=== PATIENT | female | born 1965 | race Caucasian/White ===

== ENCOUNTER 2020-03-06 08:38 | Outpatient (REF) | payer MEDICAID, SELFPAY | END 2020-03-06 08:39 | disposition home or self-care (01) | LOC: HO.LAB 08:38 | PROVIDERS: Visit Provider Internal Medicine | DX: Z20.828 Contact with and (suspected) exposure to other viral communicable diseases (principal) | CPT/HCPCS: C9803; U0003 ==

== ENCOUNTER 2020-08-09 13:42 | Outpatient (REF) | payer MEDICAID, SELFPAY ==
[2020-08-09 15:09] LABS: MANUAL DIFF FLAG NO
[2020-08-09 15:20] LABS: Basophils Percent Auto 0.7 % (0-2); Eosinophils Absolute Auto 0.1 X10*3/uL (0.0-0.4); Eosinophils Percent Auto 1.3 % (0-4); Hematocrit 36.9 % (37-47); Hemoglobin 12.1 g/dl (12.0-16.0); Imm Gran Abs Auto 0.01 X10*3/uL (0.00-0.03); Imm Gran Pct Auto 0.2 % (0.0-0.4); Lymphocytes Absolute Auto 2.1 X10*3/uL (1.2-4.9); Lymphocytes Percent Auto 33.7 % (20-40); Mean Corpuscular HGB Conc 32.8 g/dl (31.0-35.0); Mean Corpuscular Hemoglobin 30.1 pg (27.0-33.0); Mean Corpuscular Volume 91.8 fL (80-98); Mean Platelet Volume 12.3 fL (9.4-12.3); Monocytes Absolute Auto 0.5 X10*3/uL (0.1-1.2); Monocytes Percent Auto 8.6 % (2-11); Neutrophils Absolute Auto 3.4 X10*3/uL (2.0-8.3); Neutrophils Percent Auto 55.5 % (45-73); Platelet Count 219 X10*3/uL (160-400); Red Blood Count 4.02 X10*6/uL (4.20-5.50); Red Cell Distribution Width 12.7 % (11.0-16.0); White Blood Count 6.2 X10*3/uL (4.8-10.8)
[2020-08-09 15:42] LABS: Alanine Aminotransferase 29 U/L (0-31); Albumin Level 3.9 g/dL (3.5-5.0); Alkaline Phosphatase 63 U/L (39-117); Aspartate Amino Transferase 18 U/L (5-31); Bilirubin Total 0.3 mg/dL (0.0-1.0); Blood Urea Nitrogen 14 mg/dL (9-16); Estimated Glomerular Filt Rate > 60; Glucose Random 98 mg/dL (60-115); Total Protein 7.1 g/dL (6.5-8.0)
[2020-08-09 15:54] LABS: Anion Gap 10 (12-20); Carbon Dioxide 27 mmol/L (22-29); Chloride 109 mmol/L (96-108); Potassium 3.9 mmol/L (3.3-5.1); Sodium 142 mmol/L (135-145)
[2020-08-09 16:32] LABS: Erythrocyte Sedimentation Rate 18 MM/HR (0-20)
== END 2020-08-09 13:43 | disposition home or self-care (01) ==
LOC: HO.MANLDS 13:42
PROVIDERS: PCP Internal Medicine; Visit Provider Internal Medicine
DX: R55 Syncope and collapse (principal)
CPT/HCPCS: 36415; 80053; 85025; 85652

== ENCOUNTER 2020-09-16 17:38 | Outpatient (REF) | payer MEDICAID, SELFPAY ==
--- NOTE | ~2020-09-16 | XR_ITS ---
EXAMINATION: BILATERAL SHOULDER. CLINICAL INFORMATION: Pain. COMPARISON: None TECHNIQUE: 4 views each shoulder. FINDINGS: Left shoulder: There is a normal glenohumeral alignment. The AC joint is normal. There is no visible fracture, dislocation or bony erosive changes. The soft tissues are normal. Right shoulder: There is normal glenohumeral and AC joint alignment. No acute fracture, dislocation or subluxation seen. No bony erosive changes. No loose bodies or calcifications seen. XR/XR shoulder RT min 2V IMPRESSION: Unremarkable bilateral shoulder exam.
--- NOTE | ~2020-09-16 | XR_ITS ---
EXAMINATION: BILATERAL SHOULDER. CLINICAL INFORMATION: Pain. COMPARISON: None TECHNIQUE: 4 views each shoulder. FINDINGS: Left shoulder: There is a normal glenohumeral alignment. The AC joint is normal. There is no visible fracture, dislocation or bony erosive changes. The soft tissues are normal. Right shoulder: There is normal glenohumeral and AC joint alignment. No acute fracture, dislocation or subluxation seen. No bony erosive changes. No loose bodies or calcifications seen. XR/XR shoulder LT min 2V IMPRESSION: Unremarkable bilateral shoulder exam.
== END 2020-09-16 17:39 | disposition home or self-care (01) ==
LOC: HO.XRAY 17:38
PROVIDERS: PCP Internal Medicine; Visit Provider Internal Medicine
DX: M25.512 Pain in left shoulder (principal); M25.511 Pain in right shoulder
CPT/HCPCS: 73030

== ENCOUNTER 2020-09-27 10:24 | Outpatient (REF) | payer MEDICAID, SELFPAY ==
--- NOTE | ~2020-09-27 | MM_ITS ---
EXAMINATION: MM SCREENING DIGITAL BREAST TOMOSYNTHESIS, BILATERAL CLINICAL INFORMATION: Screening. Asymptomatic. The lifetime risk of breast cancer based on the Tyrer-Cuzick Model is 10%. COMPARISON: Mammography: 07/19/2019 and prior studies dating back to 08/13/2009 TECHNIQUE: Digital breast tomosynthesis is performed in both the craniocaudal and mediolateral oblique views along with computer-aided detection (CAD). Synthesized 2D images are generated from the tomosynthesis. FINDINGS: The breasts are heterogeneously dense, which may obscure small masses (ACR BI-RADS breast composition Category c). Breast tissue composition borders on average fibroglandular. The right breast parenchymal pattern is similar to prior studies. There is no interval mass or architectural abnormality. Low right axillary tail node is stable. Neither breast shows abnormal calcifications. The axilla and skin contours are unremarkable. Left MLO view has asymmetric density central upper aspect likely summation artifact. Parenchymal pattern is similar to multiple prior exams on CC view. Patient will be recalled for additional views to further characterize. MM/MM tomosynthesis screening BI IMPRESSION: 1. Left: Asymmetric density central upper breast, suspect summation artifact. 2. Right: No mammographic evidence of malignancy. ASSESSMENT: BI-RADS 0: Incomplete - Need Additional Imaging Evaluation RECOMMENDATION: 1. Additional views of the left breast (3D spot MLO, 3D ML). 2. Targeted ultrasound if warranted after review of the additional views. 3. Radiology department staff will contact the patient for additional imaging. This patient's information was entered into a reminder system with a target due date for their next mammogram.
== END 2020-09-27 10:25 | disposition home or self-care (01) ==
LOC: HO.MAMMO 10:24
PROVIDERS: Visit Provider Internal Medicine
DX: Z12.31 Encounter for screening mammogram for malignant neoplasm of breast (principal)
CPT/HCPCS: 77063; 77067

== ENCOUNTER 2020-09-27 11:01 | Outpatient (REF) | payer MEDICAID, SELFPAY ==
--- NOTE | ~2020-09-27 | CT_ITS ---
EXAMINATION: CT HEAD WITHOUT CONTRAST CLINICAL INFORMATION: Syncope and collapse COMPARISON: None TECHNIQUE: Contiguous axial imaging was performed from the skull base to vertex without intravenous administration of contrast. This CT examination was performed using dose optimization techniques as appropriate, variously including the following: *Automated exposure control *Adjustment of mA and/or kV according to patient size (this includes techniques or standardized protocols for targeted exams where dose is matched to indication/reason for exam; i.e. extremities or head) *Use of iterative reconstruction technique DLP: 690 mGy-cm FINDINGS: There is no evidence of acute intracranial hemorrhage or territorial infarction. No abnormal mass effect or midline shift is seen. Ventura to white matter differentiation is well preserved. No extra-axial fluid collections are identified. The ventricles are normal in size. There is no abnormal attenuation within the brain parenchyma. The osseous structures and soft tissues are normal. The mastoid air cells and visualized portions of the paranasal sinuses are well aerated. CT/CT head/brain wo con IMPRESSION: Unremarkable exam.
== END 2020-09-27 11:02 | disposition home or self-care (01) ==
LOC: HO.CT 11:01
PROVIDERS: Visit Provider Internal Medicine
DX: R55 Syncope and collapse (principal)
CPT/HCPCS: 70450

== ENCOUNTER 2020-10-09 10:49 | Outpatient (REF) | payer MEDICAID, SELFPAY ==
--- NOTE | ~2020-10-09 | MM_ITS ---
EXAMINATION: MM DIAGNOSTIC DIGITAL BREAST TOMOSYNTHESIS, LEFT CLINICAL INFORMATION: Recall from screening for asymmetric density central upper breast on MLO view, likely summation artifact. TC Score 10%. Family history breast cancer, mother. COMPARISON: Mammography: 09/27/2020, 07/19/2019, 05/13/2018 TECHNIQUE: Digital breast tomosynthesis is performed. 2D images are generated from the tomosynthesis. The following views are obtained: 3-D spot MLO, 3-D ML FINDINGS: The breasts are heterogeneously dense, which may obscure small masses (ACR BI-RADS breast composition Category c). The additional views show no persistent asymmetric density. There is no underlying mass or architectural abnormality. Results are discussed with the patient at time of visit. MM/MM tomosynthesis added views L IMPRESSION: Additional views show no persistent asymmetric density. No significant changes. ASSESSMENT: BI-RADS 1: Negative RECOMMENDATION: Routine annual mammography screening. This patient's information was entered into a reminder system with a target due date for their next mammogram.
== END 2020-10-09 10:50 | disposition home or self-care (01) ==
LOC: HO.MAMMO 10:49
PROVIDERS: Visit Provider Internal Medicine
DX: R92.2 Inconclusive mammogram (principal)
CPT/HCPCS: 77061; 77065

== ENCOUNTER → 2020-10-29 09:30 | Outpatient (REF) | payer MEDICAID, SELFPAY ==
--- NOTE | 2020-10-29 09:30 | CA_ITS ---
Transthoracic Echocardiogram Patient (Last, First, Middle): Aruna Red E Gender: Female Date of : 1965 Age: 55 Procedure Date: 10/29/2020 Procedure Type: Transthoracic Echocardiogram Location: OP Height: 149.86 cm Weight: 61.24 kg BSA: 1.56 m2 Heart Rate: bpm BP: 124 / 75 mmHg Clinical Account Liaison: NATALEE/CHAZ Referring MD: Aiden Quezada MD Scan Coordinator: Magdiel Villar MD Symptoms: SYNCOPE COLLAPSE R55 Study Quality: Fair ECG Rhythm: Sinus Conclusions: - Normal study Findings Left Ventricle Normal left ventricular size, thickness, and systolic function. The visually estimated ejection fraction is between 60-65%. Diastolic function is normal for age. Right Ventricle Normal right ventricular cavity size and systolic function. Atria Both atria are normal in size. There is no evidence of interatrial shunt. Aortic Valve Normal aortic valve structure and function. There is no aortic valve stenosis. There is no aortic valve regurgitation. Mitral Valve Normal mitral valve structure and function. There is trace mitral valve regurgitation. There is no mitral valve stenosis. Pulmonic Valve The pulmonic valve is likely normal. There is trace pulmonic valve regurgitation. Tricuspid Valve Normal tricuspid valve structure. There is trace tricuspid valve regurgitation. The right ventricular systolic pressure is normal. The right ventricular systolic pressure is 16 mmHg. Normal right atrial pressure. There is no evidence of pulmonary hypertension. Great Vessels All visible segments of the aorta are normal in size. The pulmonary artery was not well visualized. Venous The inferior vena cava is normal in size and collapses greater than 50% with inspiration. Pericardium/Pleural There is no evidence of pericardial effusion. Prior Study Comparison No prior study available for comparison. Measurements M-Mode Liner Measurements Normals - Women/Men AOV Cusps: 1.30 1.5-2.6 cm/m2 2D Linear Measurements IVSd: 0.50 0.6-0.9/0.6-1.0 cm LVIDd: 4.76 3.9-5.3/4.2-5.9 cm LVIDd Index: 3.05 2.4-3.2/2.2-3.1 cm/m2 LVIDs: 3.11 2.0-3.6 cm LVPWd: 0.52 0.7-1.1 cm Ao Root: 2.40 2.1-3.5 cm LA Diam: 2.70 2.7-3.8/3.0-4.0 cm LAIDs Index: 1.73 1.5-2.3 cm/m2 LV Mass: 88.45 67-162/88-224 g LV Mass Index: 56.70 43-95/49-115 g/m2 LVOT Diam: 1.80 3.0+(-)1.3 cm 2D Systolic Function EF 4C: 69.00 >55% EF 2C: 62.20 >55% EF BiP: 64.80 >55% Mitral Valve MV Pk E: 0.86 MV PK A: 0.81 MV Decel Time: 167.00 E/A: 1.10 E'Lateral: 11.00 E'Medial: 11.10 E/E' Med: 7.80 E/E' Lat: 7.80 PHT: 49.00 MVA PHT: 4.49 Decel Tyler: 5.18 Aortic Valve AoV Pk Oliver: 1.23 AoV Mn Oliver: 0.90 AoV VTI: 0.31 AoV Pk Grad: 6.00 Aov Mn Grad: 4.00 FALLON Cont.VTI: 1.55 LVOT LVOT Pk Oliver: 0.91 LVOT Mn Oliver: 0.60 LVOT VTI: 0.19 LVOT Pk Grad: 3.00 LVOT Mn Grad: 2.00 LVOT Diam: 1.80 LVOT Area: 2.54 Diastolic Function MV Pk E: 0.86 MV Pk A: 0.81 E/A: 1.10 E'Medial: 11.10 E/E' Med: 7.80 E' Laterial: 11.00 E/E' Lat: 7.80 Tricuspid Valve TR Pk Oliver: 1.82 TR Pk Grad: 13.00 RA Press: 3.00 RVSP: 16.00 Great Vessels Aorta Ao Root-2D: 2.40 2.0-3.7 cm Ao Asc: 2.80 2.1-3.4 cm Ao Arch: 2.70 Pulmonary Valve PV Pk Oliver: 0.98 Peak PV Grad: 4.00 Updated in Other Vendor System with Status of Final Magdiel Villar MD electronically signed on 10/29/2020 4:45:38 PM with status of Final
== END ==
LOC: HO.CARD 09:30
PROVIDERS: Visit Provider Internal Medicine
DX: R55 Syncope and collapse (principal)
CPT/HCPCS: 93306

== ENCOUNTER 2021-02-24 12:00 | Outpatient (RCR) | payer MEDICAID, SELFPAY | END 2021-04-03 14:42 | disposition home or self-care (01) | LOC: HO.PT 12:00 | PROVIDERS: PCP Internal Medicine; Visit Provider Internal Medicine | DX: M75.100 Unspecified rotator cuff tear or rupture of unspecified shoulder, not specified as traumatic (principal) | CPT/HCPCS: 97110; 97140; 97162; 97530; 97535 ==

== ENCOUNTER 2021-03-20 17:48 | Outpatient (REF) | payer MEDICAID, SELFPAY | END 2021-03-20 17:49 | disposition home or self-care (01) | LOC: HO.MRI 17:48 | PROVIDERS: PCP Internal Medicine; Visit Provider Internal Medicine | DX: Z13.89 Encounter for screening for other disorder (principal) ==

== ENCOUNTER 2021-07-16 09:52 | Outpatient (REF) | payer MEDICAID, SELFPAY ==
[2021-07-16 12:36] LABS: HBc Num1 10.27 S/CO (0.00-0.79); ~HepC Num1 16.24 S/CO (0.00-0.79); ~Hepatitis C Antibody Reactive (Nonreactive)
[2021-07-16 12:40] LABS: Syphilis Screen Nonreactive (Nonreactive)
[2021-07-16 13:20] LABS: HIV AB/AG Nonreactive (Nonreactive); HIV Num 1 0.04 S/CO (0.00-0.99)
[2021-07-16 15:09] LABS: HBc Num2 14.31 S/CO; HBc Num3 14.28 S/CO; Hepatitis B Core Antibody Reactive (Nonreactive)
[2021-07-17 10:56] LABS: Hepatitis B Core Antibody IgM NON-REACTIVE (NON-REACTIVE)
[2021-07-21 23:15] LABS: HPV 16 RNA NOT DETECTED (NOT DETECTED); HPV mRNA E6/E7 rflx Detected (Not Detected)
== END 2021-07-16 09:53 | disposition home or self-care (01) ==
LOC: HO.LAB 09:52
PROVIDERS: PCP Internal Medicine; Visit Provider Advanced Practice Midwife
DX: Z01.419 Encounter for gynecological examination (general) (routine) without abnormal findings (principal); Z11.51 Encounter for screening for human papillomavirus (HPV); Z11.4 Encounter for screening for human immunodeficiency virus [HIV]; Z20.2 Contact with and (suspected) exposure to infections with a predominantly sexual mode of transmission; Z72.0 Tobacco use
CPT/HCPCS: 36415; 86704; 86705; 86780; 86803; 87389; 87624; 87625; 88142

== ENCOUNTER → 2021-07-30 15:51 | Outpatient (BNVA) | payer MEDICAID, SELFPAY | PROVIDERS: PCP Internal Medicine; Visit Provider Advanced Practice Midwife | DX: B19.20 Unspecified viral hepatitis C without hepatic coma (principal); F17.210 Nicotine dependence, cigarettes, uncomplicated; Z71.2 Person consulting for explanation of examination or test findings | CPT/HCPCS: Q3014 ==

== ENCOUNTER 2021-08-01 11:53 | Outpatient (REF) | payer MEDICAID, SELFPAY ==
[2021-08-01 17:54] LABS: CT PCR NOT DETECTED (Not Detect.); NG PCR NOT DETECTED (Not Detect.)
== END 2021-08-01 11:54 | disposition home or self-care (01) ==
LOC: HO.LAB 11:53
PROVIDERS: PCP Internal Medicine; Visit Provider Advanced Practice Midwife
DX: Z11.3 Encounter for screening for infections with a predominantly sexual mode of transmission (principal)
CPT/HCPCS: 87491; 87591

== ENCOUNTER 2021-10-01 09:20 | Outpatient (REF) | payer MEDICAID, SELFPAY ==
--- NOTE | ~2021-10-01 | MM_ITS ---
EXAMINATION: MM SCREENING DIGITAL BREAST TOMOSYNTHESIS, BILATERAL CLINICAL INFORMATION: Screening. Asymptomatic. The lifetime risk of breast cancer based on the Tyrer-Cuzick Model is 10%. COMPARISON: Mammography: 10/09/2020, 09/27/2020, 07/19/2019, 05/13/2018, 04/17/2017, 03/03/2016 TECHNIQUE: Digital breast tomosynthesis is performed in both the craniocaudal and mediolateral oblique views along with computer-aided detection (CAD). Synthesized 2D images are generated from the tomosynthesis. FINDINGS: The breasts are heterogeneously dense, which may obscure small masses (ACR BI-RADS breast composition Category c). Parenchymal asymmetries are similar to prior studies. No interval mass or architectural abnormality or developing density. No abnormal calcifications. The axilla and skin contours are unremarkable. No significant changes from prior exams. MM/MM tomosynthesis screening BI IMPRESSION: No mammographic evidence of malignancy. ASSESSMENT: BI-RADS 2: Benign RECOMMENDATION: Routine annual mammography screening. This patient's information was entered into a reminder system with a target due date for their next mammogram.
== END 2021-10-01 09:21 | disposition home or self-care (01) ==
LOC: HO.MAMMO 09:20
PROVIDERS: PCP Internal Medicine; Visit Provider Internal Medicine
DX: Z12.31 Encounter for screening mammogram for malignant neoplasm of breast (principal)
CPT/HCPCS: 77063; 77067

== ENCOUNTER 2022-10-08 10:28 | Outpatient (REF) | payer MEDICAID, SELFPAY ==
[2022-10-08 15:12] LABS: CT PCR NOT DETECTED (Not Detect.); NG PCR NOT DETECTED (Not Detect.)
[2022-10-09 11:12] LABS: BV Int Neg Control Negative (Negative); BV Int Pos Control Positive (Positive)
[2022-10-13 22:08] LABS: HPV mRNA E6/E7 rflx Not Detected (Not Detected)
== END 2022-10-08 10:29 | disposition home or self-care (01) ==
LOC: HO.LNP 10:28
PROVIDERS: PCP Internal Medicine; Visit Provider Advanced Practice Midwife
DX: Z01.419 Encounter for gynecological examination (general) (routine) without abnormal findings (principal); B19.20 Unspecified viral hepatitis C without hepatic coma; Z78.0 Asymptomatic menopausal state; Z20.2 Contact with and (suspected) exposure to infections with a predominantly sexual mode of transmission
CPT/HCPCS: 0353U; 87480; 87510; 87624; 87660; 88142

== ENCOUNTER 2022-10-21 09:23 | Outpatient (REF) | payer MEDICAID, SELFPAY ==
--- NOTE | ~2022-10-21 | MM_ITS ---
EXAMINATION: MM SCREENING DIGITAL BREAST TOMOSYNTHESIS, BILATERAL CLINICAL INFORMATION: Screening. Asymptomatic. The lifetime risk of breast cancer based on the Tyrer-Cuzick Model is 9%. COMPARISON: Mammography: 10/01/2021, 10/09/2020, 09/27/2020, 07/19/2019, 05/13/2018, 04/17/2017 TECHNIQUE: Digital breast tomosynthesis is performed in both the craniocaudal and mediolateral oblique views along with computer-aided detection (CAD). Synthesized 2D images are generated from the tomosynthesis. FINDINGS: The breasts are heterogeneously dense, which may obscure small masses (ACR BI-RADS breast composition Category c). Parenchymal pattern is similar to prior exams. Minor asymmetries are stable. There is no developing density or architectural abnormality. Intramammary node posterior upper outer right breast is stable. There are no significant masses, abnormal calcifications, or other abnormalities. The axilla and skin contours are unremarkable. MM/MM tomosynthesis screening BI IMPRESSION: No mammographic evidence of malignancy. ASSESSMENT: BI-RADS 2: Benign RECOMMENDATION: Routine annual mammography screening. This patient's information was entered into a reminder system with a target due date for their next mammogram.
== END 2022-10-21 09:24 | disposition home or self-care (01) ==
LOC: HO.MAMMO 09:23
PROVIDERS: PCP Internal Medicine; Visit Provider Internal Medicine
DX: Z12.31 Encounter for screening mammogram for malignant neoplasm of breast (principal)
CPT/HCPCS: 77063; 77067

== ENCOUNTER 2022-10-25 19:24 | Emergency (ER) | payer MEDICAID, SELFPAY ==
[2022-10-25 20:04] VITALS: BP 138/78; PULSE 93; RESP 17; TEMP 36.4; O2SAT 99; BMI 29.3
--- NOTE | 2022-10-25 20:04 | ED_ITS ---
HPI - Skin/Abscess/Foreign Bdy General Chief complaint: Animal Bite Stated complaint: Spider bite Time Seen by Provider: 10/25/22 20:14 Source: patient Mode of arrival: ambulatory Limitations: no limitations History of Present Illness HPI narrative: Patient is a 57-year-old female who presents emergency department for evaluation of her rash. Awoke at 0230, very itchy to bilateral upper extremities and ankles (these areas were not covered with clothing), she was sleeping at a friend house and states I think it may have gotten bit by a spider . She noticed small vesicular type eruptions, and developed surrounding redness, swelling, discomfort. Denies shortness of breath, difficulty breathing. Denies any known allergies. She attempted to use a topical Benadryl cream but this has not provided any relief. Related Data Home Medications Medication Instructions Recorded Confirmed buspirone 5 mg tablet 5 mg PO BID 07/16/21 10/08/22 Previous Rx's Medication Instructions Recorded hydrocortisone 2.5 % topical cream 1 appl topical BID #20 grams 10/25/22 loratadine 10 mg tablet 10 mg PO DAILY #14 tabs 10/25/22 prednisone 20 mg tablet 40 mg PO DAILY 5 days #10 tabs 10/25/22 Allergies Allergy/AdvReac Type Severity Reaction Status Date / Time No Known Allergies Allergy Verified 10/08/22 10:34 [No Known Allergies*] Review of Systems Review of Systems: Yes all other systems are reviewed and are negative [facility] Past Medical History Attestation statement: The following information was validated with the patient. Source: old records reviewed Medical History Hepatitis C virus infection History of anxiety Surgical History Hx of section Family History Family History Mother History of breast cancer Maternal Grandmother Ovarian cancer Social History Social History Alcohol intake: current Alcohol intake frequency: a few times a month Patient Tobacco Use Status: Current everyday Tobacco user Cigarettes Per Day: 4 Advance Directives: No Advance Directives Information Provided: No Sexual orientation: Straight/Heterosexual Gender identity: Female Physical Exam Vital Signs: Vital Signs: Last Vital Signs Temp 97.5 F 10/25/22 20:04 Pulse 93 10/25/22 20:04 Resp 17 10/25/22 20:04 BP 138/78 10/25/22 20:04 Pulse Ox 99 10/25/22 20:04 O2 Del Method Room Air 10/25/22 20:04 BMI result Body Mass Index 29.3 Appearance: Alert.?Oriented to person, place and time. No acute distress.?Normal affect. Eyes: Pupils equal, round and reactive to light.? ENT: Pharynx normal.??Tonsillar hypertrophy. No angioedema. Neck: Normal inspection.? Neck supple.?? CVS: Heart sounds normal. Normal heart rate and rhythm.? Pulses normal.?? Respiratory: No respiratory distress.? Lung sounds clear to auscultation bilaterally?? Abdomen: Soft and non-tender. Normoactive bowel sounds. Skin: Skin warm and dry.? Normal skin color.? Bilateral upper and lower extremities with diffuse maculopapular and vesicular eruption with significant erythema and swelling surrounding. No blistering. Extremities: No lower extremity edema.? Neuro: Moves all extremities spontaneously. Sensation intact bilaterally. No focal neuro deficits. Ambulates with normal steady gait. Medical Decision Making Medical Decision Making [facility] Narrative: Patient is a 57-year-old female who presents emergency department for evaluation of a rash as noted in HPI. She is overall well-appearing, nontoxic, afebrile. There is no upper airway compromise. Examination is most consistent with a contact dermatitis at this time, Discussed with patient potential allergic etiology, environmental exposure, insect bite. No involvement of the oral mucosa, Not consistent with SJS, TEN. Discussed plan of care, stable for discharge home, sent prescription for oral prednisone, topical hydrocortisone, and loratadine to pharmacy. We reviewed worrisome signs and symptoms that would warrant re-evaluation in the emergency department. All questions were answered. Advised outpatient follow-up with her primary care provider. Differential Diagnosis Differential Diagnoses: The differential diagnosis associated with the presentation includes (Contact dermatitis, urticaria, herpes zoster, cellulitis,) Prescription Management I considered prescription management with: Other (As noted in MDM) Discharge Plan Discharge Clinical Impression: Contact dermatitis Patient Disposition: Home, Self-Care Instructions: Contact Dermatitis (ED) Additional Instructions: As discussed, it appears as though you are having a reaction to something you may have been exposed to, this pain glued in 6, allergens in the bedding of the place that you were sleeping. I sent a prescription for prednisone, an oral steroid to the pharmacy, please take this with food to prevent stomach upset. I have also sent a prescription for a steroid cream to the pharmacy, please apply this twice daily to the affected areas. Additionally, I have sent a prescription for an oral allergy medication, this medication should not make you drowsy, is also available [id number]. Prescriptions: New prednisone 20 mg tablet 40 mg PO DAILY 5 Days Qty: 10 0RF hydrocortisone 2.5 % cream 1 appl topical BID Qty: 20 0RF loratadine 10 mg tablet 10 mg PO DAILY Qty: 14 0RF No Action buspirone 5 mg tablet 5 mg PO BID Referrals: Aiden Quezada MD [Primary Care Provider] - Discharge Date/Time: 10/25/22 20:25
== END 2022-10-25 20:25 | disposition home or self-care (01) ==
PROVIDERS: Emergency Provider Internal Medicine; PCP Internal Medicine
DX: L25.9 Unspecified contact dermatitis, unspecified cause (principal)
CPT/HCPCS: 99282

== ENCOUNTER 2022-11-01 15:07 | Emergency (ER) | payer MEDICAID, SELFPAY ==
[2022-11-01 15:35] VITALS: BP 115/63; PULSE 82; RESP 16; TEMP 36.1; O2SAT 95; BMI 28.3
--- NOTE | 2022-11-01 15:36 | ED.GENADULT ---
HPI - General Adult General Chief complaint: Dental/Oral Stated complaint: hard to swallow Time Seen by Provider: 11/01/22 16:18 Source: patient Mode of arrival: ambulatory Limitations: no limitations History of Present Illness HPI narrative: Patient is a 57-year-old female presenting to the emergency department with left lateral tongue pain worse with swallowing related to a broken tooth to left lower jaw. States that she feels her tongue is being abraded, lacerated by the broken tooth. She does not currently have a dentist. She states that she would like to have the tooth removed. Denies any fevers. Denies any difficulty swallowing. Denies any neck swelling. Denies any difficulty breathing. MD complaint: Tongue irritation Onset (ago): day(s) Location: mouth Radiation: non-radiation Severity: moderate Quality: burning Pain Consistency: constant Relieving factors: rest Exacerbating factors: eating Associated symptoms: denies other symptoms Treatments prior to arrival: none Related Data Home Medications Medication Instructions Recorded Confirmed buspirone 5 mg tablet 5 mg PO BID 07/16/21 10/08/22 Previous Rx's Medication Instructions Recorded hydrocortisone 2.5 % topical cream 1 appl topical BID #20 grams 10/25/22 loratadine 10 mg tablet 10 mg PO DAILY #14 tabs 10/25/22 prednisone 20 mg tablet 40 mg PO DAILY 5 days #10 tabs 10/25/22 amoxicillin 875 mg-potassium 1 tab PO BID #14 tabs 11/01/22 clavulanate 125 mg tablet Allergies Allergy/AdvReac Type Severity Reaction Status Date / Time No Known Allergies Allergy Verified 11/01/22 15:35 [No Known Allergies*] Review of Systems Review of Systems: As per HPI. Yes all other systems are reviewed and are negative Constitutional: Constitutional: Reports as per HPI [facility] Past Medical History Medical History Hepatitis C virus infection History of anxiety Surgical History Hx of section Family History Family History Mother History of breast cancer Maternal Grandmother Ovarian cancer Social History Social History Alcohol intake: current Alcohol intake frequency: a few times a month Patient Tobacco Use Status: Current everyday Tobacco user Cigarettes Per Day: 4 Advance Directives: No Advance Directives Information Provided: No Sexual orientation: Straight/Heterosexual Gender identity: Female Physical Exam ED Vital Signs: Vital Signs - 24 hr 11/01/22 15:35 Temperature 97.0 F Pulse Rate 82 Respiratory Rate 16 Blood Pressure 115/63 Pulse Oximetry 95 Oxygen Delivery Method Room Air BMI result Body Mass Index 28.3 Vital signs have been reviewed and appear to be correct. Blood pressure normal. Heart rate normal. Respiratory rate normal. Temperature normal. Oxygen saturation normal. Const General: cooperative, healthy appearing and no acute distress Orientation/consciousness: oriented to person, oriented to place, oriented to time and patient oriented x3 Limitations: no limitations HENMT Head: Yes normocephalic and Yes atraumatic Ears: external ears normal General nose exam: Normal external nose present Face and sinus: Yes face symmetric Mouth: Normal oral and palatal mucosa present, lip normal, oropharynx normal, moist mucous membranes and tongue abnormal laceration (superficial, left lateral posterior) Teeth and gingiva: caries and poor dentition Teeth image: 1. Tooth #17 pain with palpation, mild gingival erythema and edema Throat: Yes uvula midline Eyes Pupils: Equal, round and reactive pupils present Neck Neck: Yes normal visual inspection, Yes no lymphadenopathy and Yes supple Resp Effort & Inspection: normal respiratory effort and able to speak in complete sentences Auscultation: clear to auscultation bilaterally Cardio Rate: regular rate Rhythm: regular rhythm Heart sounds: S1 normal heart sound present and S2 normal heart sound present GI Palpation (GI): Soft to palpation and nontender Auscultation: normoactive bowel sounds General: Yes no CVA tenderness Back/Spine/Pelvis Back: no CVA tenderness Skin General skin exam: elasticity normal and turgor normal Neuro General: oriented to person, oriented to place, oriented to time, patient oriented x3, moves all extremities, no focal motor deficits and CN's II-XI intact bilaterally Cranial nerves: Yes Equal, round and reactive pupils present Cognition (Neuro): normal cognition Extrem General: Yes full ROM, Yes no pedal edema and Yes no calf tenderness Psych Mental Status: mental status grossly normal Affect: normal affect Thought process: Normal thought process present Course Course Course Narrative: RME: 57 yold female with left lower molar cracked tooth that is irratated. patient states no fever, chills, swelling of lip/tongue, or any recent trauma. no facial swelling. Will be seen in [facility]> Medical Decision Making Medical Decision Making [facility]DM Narrative: Patient is a 57-year-old female presenting to the emergency department with left lateral tongue pain worse with swallowing related to a broken tooth to left lower jaw. On exam patient is awake, A+Ox3, VS WNL, afebrile, normal neurological exam without focal deficits, superficial laceration to left lateral posterior tongue, mild erythema and edema to gingiva surrounding tooth #17, tooth pain with palpation, no submandibular lymphadenopathy, patient managing secretions without difficulty, no respiratory compromise. Given reported symptoms and physical exam findings, differential includes dental caries, infection, abscess. Will treat patient with course of augmentin, provider referral for dentists as she will likely need tooth extracted. Instructed patient to gargle with warm salt water several times daily. Return precautions discussed at bedside. Patient verbalized understanding of and agreement with plan. Differential Diagnosis As above. External Record Review External record reviewed: Inpatient record, Office record and Outpatient record Prescription Management I considered prescription management with: Antibiotic (amoxicillin) Discharge Plan Discharge Clinical Impression: Dental abscess, Dental caries Patient Disposition: Home, Self-Care Instructions: Dental Abscess (ED), Tooth Extraction (DC) Additional Instructions: You are being prescribed a course of antibiotics for a dental infection. Please complete the full course of antibiotics as prescribed. You are being provided with a list of dentists, please begin calling [facility] to establish care. Follow up with your PCP this week. Return to the emergency department for worsening pain, fever 100.4 F or greater, drainage or discharge from the area, jaw or neck swelling, difficulty swallowing, shortness of breath or any other concerning symptoms. Prescriptions: New amoxicillin-pot clavulanate 875-125 mg tablet 1 tab PO BID Qty: 14 0RF No Action prednisone 20 mg tablet 40 mg PO DAILY 5 Days Qty: 10 0RF hydrocortisone 2.5 % cream 1 appl topical BID Qty: 20 0RF loratadine 10 mg tablet 10 mg PO DAILY Qty: 14 0RF buspirone 5 mg tablet 5 mg PO BID Interventions: ED Discharge Assessment Last Done: 11/01/22 17:28 Discharge Date/Time: 11/01/22 17:36
== END 2022-11-01 17:36 | disposition home or self-care (01) ==
PROVIDERS: Emergency Provider Emergency Medicine Emergency Medical Services; PCP Internal Medicine
DX: K14.6 Glossodynia (principal); Y93.9 Activity, unspecified; K04.7 Periapical abscess without sinus; K02.9 Dental caries, unspecified
CPT/HCPCS: 99283

== ENCOUNTER 2023-01-25 09:16 | Outpatient (REF) | payer MEDICAID, SELFPAY ==
[2023-01-25 10:59] LABS: MANUAL DIFF FLAG NO
[2023-01-25 11:09] LABS: Basophils Percent Auto 0.5 % (0-2); Eosinophils Absolute Auto 0.1 X10*3/uL (0.0-0.4); Eosinophils Percent Auto 2.1 % (0-4); Hematocrit 42.2 % (37.0-47.0); Hemoglobin 13.6 g/dl (12.0-16.0); Imm Gran Abs Auto 0.02 X10*3/uL (0.00-0.03); Imm Gran Pct Auto 0.3 % (0.0-0.4); Lymphocytes Absolute Auto 2.3 X10*3/uL (1.2-4.9); Mean Corpuscular HGB Conc 32.2 g/dl (31.0-35.0); Mean Corpuscular Hemoglobin 30.1 pg (27.0-33.0); Mean Corpuscular Volume 93.4 fL (80.0-98.0); Mean Platelet Volume 11.4 fL (9.4-12.3); Monocytes Absolute Auto 0.5 X10*3/uL (0.1-1.2); Monocytes Percent Auto 8.4 % (2-11); Neutrophils Absolute Auto 3.3 x10*3/uL (2.0-8.3); Neutrophils Percent Auto 52.7 % (45-73); Platelet Count 210 X10*3/uL (160-400); Red Blood Count 4.52 X10*6/uL (4.20-5.50); Red Cell Distribution Width 13.2 % (11.0-16.0); White Blood Count 6.3 X10*3/uL (4.8-10.8)
[2023-01-25 11:28] LABS: Alanine Aminotransferase 12 U/L (0-31); Albumin Level 4.1 g/dL (3.5-5.0); Alkaline Phosphatase 60 U/L (39-117); Anion Gap 11 (12-20); Aspartate Amino Transferase 14 U/L (5-31); Bilirubin Total 0.5 mg/dL (0.0-1.0); Blood Urea Nitrogen 16 mg/dL (9-16); Calcium 9.4 mg/dL (8.4-10.2); Carbon Dioxide 24 mmol/L (22-29); Chloride 110 mmol/L (96-108); Cholesterol 237 mg/dL (<200); Estimated Glomerular Filt Rate > 60; Glucose Random 97 mg/dL (60-115); HDL Cholesterol 57 mg/dL (>40); LDL Cholesterol Calculated 167 mg/dL (<100); Potassium 3.9 mmol/L (3.3-5.1); Sodium 141 mmol/L (135-145); Total Protein 7.4 g/dL (6.5-8.0); Triglycerides 66 mg/dL (<150)
[2023-01-25 11:37] LABS: Syphilis Screen Nonreactive (Nonreactive)
[2023-01-25 11:38] LABS: HIV AB/AG Nonreactive (Nonreactive); HIV Num 1 0.06 S/CO (0.00-0.99); Hepatitis B Surface Antigen Negative (Negative)
[2023-01-25 11:47] LABS: Vitamin B12 379 pg/mL (200-900)
[2023-01-25 11:48] LABS: Thyroid Stimulating Hormone 1.38 uIU/mL (0.32-4.0); Vitamin D 25-OH Total 20.6 ng/mL (>30)
[2023-01-27 14:54] LABS: HCV Log PCR <1.18 NOT DETECTED Log IU/mL (NOT DETECTED); HepC Viral Load <15 NOT DETECTED IU/mL (NOT DETECTED)
== END 2023-01-25 09:17 | disposition home or self-care (01) ==
LOC: HO.10HDL 09:16
PROVIDERS: Absent Provider Internal Medicine; Visit Provider Advanced Practice Midwife
DX: Z00.00 Encounter for general adult medical examination without abnormal findings (principal); Z11.3 Encounter for screening for infections with a predominantly sexual mode of transmission; Z11.4 Encounter for screening for human immunodeficiency virus [HIV]; B19.20 Unspecified viral hepatitis C without hepatic coma; E55.9 Vitamin D deficiency, unspecified
CPT/HCPCS: 36415; 80053; 80061; 82306; 82607; 84443; 85025; 86780; 87340; 87389; 87522

== ENCOUNTER 2023-07-12 10:41 | Emergency (ER) | payer SELFPAY ==
--- NOTE | ~2023-07-12 | CT_ITS ---
EXAMINATION: CT ABDOMEN AND PELVIS WITH CONTRAST CLINICAL INFORMATION: Right lower quadrant pain. Nausea. COMPARISON: None available. TECHNIQUE: Multidetector volumetric images were obtained from the superior aspect of the liver through the pubic symphysis following administration 85 mL of Omnipaque 350 intravenous contrast. Sagittal and coronal reformatted images were obtained on the technologist's workstation. Oral contrast: No This CT examination was performed using dose optimization techniques as appropriate, variously including the following: *Automated exposure control *Adjustment of mA and/or kV according to patient size (this includes techniques or standardized protocols for targeted exams where dose is matched to indication/reason for exam; i.e. extremities or head) *Use of iterative reconstruction technique DLP: 492 mGy-cm FINDINGS: LUNG BASES: The visualized lung bases are unremarkable. LIVER, GALLBLADDER, AND BILIARY TREE: The liver is normal in size, shape, and attenuation. No focal hepatic lesion or biliary ductal dilatation is present. The gallbladder is unremarkable with no evidence of radiopaque gallstones, gallbladder wall thickening, or obvious pericholecystic inflammatory changes. PANCREAS: Unremarkable. SPLEEN: Unremarkable. ADRENAL GLANDS: Unremarkable. KIDNEYS AND URETERS: The kidneys are normal in size, shape, and attenuation. No hydronephrosis, hydroureter, or calculi seen. No perinephric stranding. BLADDER: Unremarkable. GASTROINTESTINAL TRACT: The small and large bowel are unremarkable. The appendix is unremarkable. ABDOMINAL WALL: No significant hernia is appreciated. LYMPH NODES: No abdominal or pelvic lymphadenopathy. VASCULAR: No abdominal aortic aneurysm. PELVIC VISCERA: Unremarkable. No adnexal mass. No pelvic free fluid. OSSEOUS STRUCTURES: There are severe degenerative disease at L4-L5. No acute osseous abnormality is seen. CT/CT abdomen pelvis w IV con IMPRESSION: No acute intra-abdominal/intrapelvic abnormality is identified to explain the patient's right lower quadrant pain. Fleischner guidelines were followed.
[2023-07-12 11:04] VITALS: BP 112/70; PULSE 77; RESP 19; TEMP 36.6; O2SAT 94; BMI 29.3
[2023-07-12 11:21] LABS: MANUAL DIFF FLAG NO
[2023-07-12 11:25] LABS: Basophils Absolute Auto 0.1 X10*3/uL (0.0-0.2); Basophils Percent Auto 0.7 % (0-2); Eosinophils Absolute Auto 0.1 X10*3/uL (0.0-0.4); Eosinophils Percent Auto 0.7 % (0-4); Hematocrit 40.4 % (37.0-47.0); Hemoglobin 13.5 g/dl (12.0-16.0); Imm Gran Abs Auto 0.03 X10*3/uL (0.00-0.03); Imm Gran Pct Auto 0.4 % (0.0-0.4); Lymphocytes Absolute Auto 2.5 X10*3/uL (1.2-4.9); Lymphocytes Percent Auto 33.2 % (20-40); Mean Corpuscular HGB Conc 33.4 g/dl (31.0-35.0); Mean Corpuscular Hemoglobin 30.2 pg (27.0-33.0); Mean Corpuscular Volume 90.4 fL (80.0-98.0); Mean Platelet Volume 10.5 fL (9.4-12.3); Monocytes Absolute Auto 0.6 X10*3/uL (0.1-1.2); Monocytes Percent Auto 7.8 % (2-11); Neutrophils Absolute Auto 4.4 x10*3/uL (2.0-8.3); Neutrophils Percent Auto 57.2 % (45-73); Platelet Count 226 X10*3/uL (160-400); Red Blood Count 4.47 X10*6/uL (4.20-5.50); Red Cell Distribution Width 12.7 % (11.0-16.0); White Blood Count 7.6 X10*3/uL (4.8-10.8)
[2023-07-12 11:28] LABS: Appearance Urine Clear; Color Urine Yellow; Glucose Urine UA Negative (Negative); Leukocyte Esterase Urine Negative (Negative); Nitrite Urine Negative (Negative); PH 5.5 (5.0-9.0); Urine Blood Negative (Negative); Urine Ketones Negative (Negative); Urine Protein Negative (Neg-Trace)
[2023-07-12 11:30] LABS: UPreg QC Valid YES; Urine Pregnancy NEGATIVE (NEGATIVE)
[2023-07-12 12:10] LABS: Alanine Aminotransferase 11 U/L (0-31); Alkaline Phosphatase 76 U/L (39-117); Anion Gap 10 (12-20); Aspartate Amino Transferase 13 U/L (5-31); Bilirubin Direct 0.2 mg/dL (0.0-0.5); Bilirubin Total 0.5 mg/dL (0.0-1.0); Blood Urea Nitrogen 12 mg/dL (9-16); Calcium 9.5 mg/dL (8.4-10.2); Carbon Dioxide 24 mmol/L (22-29); Chloride 111 mmol/L (96-108); Creatinine Clr Calc Pharmacy 68.1; Estimated Glomerular Filt Rate > 60; Glucose Random 94 mg/dL (60-115); Lipase 16 U/L (8-78); Sodium 141 mmol/L (135-145); Total Protein 7.6 g/dL (6.5-8.0)
[2023-07-12 15:25] LABS: Influenza A PCR NEGATIVE (Negative); Influenza B PCR NEGATIVE (Negative); Resp Syncy Virus RNA Qual PCR NEGATIVE (Negative); SARS COV2 PCR INHOUSE NEGATIVE (Negative)
--- NOTE | 2023-07-12 18:23 | ED_ITS ---
HPI - Abdominal Pain General Chief Complaint: Abdominal Pain Stated Complaint: abd pain Time Seen by Provider: 07/12/23 18:19 Source: patient Mode of arrival: ambulatory Limitations: no limitations History of Present Illness HPI narrative: Patient is a 57-year-old female who presents emergency department for evaluation of abdominal pain. She reports that she awoke at 00:00 from her sleep with pain to the right lower quadrant feeling dizzy and having nausea and a sensation like he needed to have a bowel movement. She reports that she had 3 episodes of loose stools without hematochezia or melena. The morning progressed she continued to have pain in the right lower quadrant. She attempted to go to work but ended up leaving due to pain. She stayed at home for some time and rested but the pain persisted thus prompting her visit to the ED. at this time denies any associated fevers, chills, dizziness, chest pain, shortness of breath, nausea, vomiting, dysuria, hematuria, urinary frequency, diarrhea, abnormal vaginal discharge, vaginal bleeding. Related Data Home Medications Medication Instructions Recorded Confirmed buspirone 5 mg tablet 5 mg PO BID 07/16/21 10/08/22 Previous Rx's Medication Instructions Recorded hydrocortisone 2.5 % topical cream 1 appl topical BID #20 grams 10/25/22 loratadine 10 mg tablet 10 mg PO DAILY #14 tabs 10/25/22 prednisone 20 mg tablet 40 mg (2 x 20 mg) PO DAILY 5 days 10/25/22 #10 tabs amoxicillin 875 mg-potassium 1 tab PO BID #14 tabs 11/01/22 clavulanate 125 mg tablet dicyclomine 10 mg capsule 10 mg PO TID #20 caps 07/13/23 ondansetron 4 mg disintegrating 4 mg PO Q8H PRN nausea and 07/13/23 tablet vomiting #14 tabs Allergies Allergy/AdvReac Type Severity Reaction Status Date / Time No Known Allergies Allergy Verified 07/12/23 11:04 [No Known Allergies*] Review of Systems Review of Systems Yes all other systems are reviewed and are negative PMFSH Past Medical History Attestation statement: The following information was validated with the patient. Source: old records reviewed Medical History Hepatitis C virus infection History of anxiety Surgical History Hx of section Family History Family History Mother History of breast cancer Maternal Grandmother Ovarian cancer Social History Social History Alcohol intake: current Alcohol intake frequency: a few times a month Patient Tobacco Use Status: Current everyday Tobacco user Cigarettes Per Day: 4 Smoked in Last 30 Days: Yes Use of substances other than those prescribed or required for medical reasons: No Advance Directives: No Advance Directives Information Provided: No Patient : No Sexual orientation: Straight/Heterosexual Gender identity: Female Physical Exam ED Vital Signs: Vital Signs - 24 hr 07/12/23 11:04 07/12/23 18:58 07/12/23 20:41 Temperature 98 F 98.5 F 97.9 F Pulse Rate 77 61 72 Respiratory Rate 19 16 20 Blood Pressure 112/70 117/50 L 101/48 L Pulse Oximetry 94 96 96 Oxygen Delivery Method Room Air Room Air Room Air 07/13/23 00:21 Temperature 97.8 F Pulse Rate 64 Respiratory Rate 20 Blood Pressure 115/56 L Pulse Oximetry 95 Oxygen Delivery Method Room Air BMI result Body Mass Index 29.3 Appearance: Alert.?Oriented to person, place and time. No acute distress.?Normal affect. Eyes: Pupils equal, round and reactive to light.? ENT: Pharynx normal.?? Neck: Normal inspection.? Neck supple.?? CVS: Heart sounds normal. Normal heart rate and rhythm.? Pulses normal.?? Respiratory: No respiratory distress.? Lung sounds clear to auscultation bilaterally?? Abdomen: Soft with right lower > right upper quadrant tenderness upon palpation, right CVA tenderness. No rebound tenderness. No rigidity. No guarding. Normoactive bowel sounds. ? Skin: Skin warm and dry.? Normal skin color. Extremities: No lower extremity edema.? Neuro: Moves all extremities spontaneously. Sensation intact bilaterally. No focal neuro deficits. Ambulates with normal steady gait. Course Reevaluation(s) Reevaluation #1: CBC is without leukocytosis or anemia, unremarkable. CMP overall unremarkable, lipase within normal range. Urinalysis is without evidence of infection, microscopic hematuria. testing is negative. Viral panel negative. CT of the abdomen and pelvis without acute intra-abdominal etiology. After receiving ketorolac pain improved. She is tolerating oral intake. No further nausea or vomiting. She does endorse a sensation of abdominal bloating. At this time feel that she is stable for discharge home, outpatient follow-up with her primary care provider. Strict return precautions. All questions answered Medical Decision Making Medical Decision Making MDM Narrative: Patient is a 57-year-old female past medical history of anxiety, hepatitis-C presenting to emergency department for evaluation of right lower quadrant abdominal pain as per HPI. At the time my examination she appears overall well, nontoxic, afebrile. She is without tachycardia tachypnea or hypoxia. Has notable right abdominal tenderness lower quadrant more than the upper quadrant, no rebound tenderness, negative Polk sign, also right CVA tenderness. Will obtain CBC to evaluate for leukocytosis/ anemia, CMP and lipase to evaluate for abnormal electrolytes /abnormal renal function/ abnormal hepatic/biliary function, CT AP and Urinalysis. 1L Ns IVF and toradol IV. Differential Diagnosis Differential Diagnoses: The differential diagnosis associated with the presentation includes (Appendicitis, colitis, diverticulitis, hydronephrosis, obstructive calculi, muscular strain. Less likely ovarian torsion, PID) Admission/Observation Consideration of admission/observation: Escalation of care including admission/observation considered (See narrative above and course narrative for further detail) Lab Data [facility] Lab Attestation statement: I reviewed the patient's lab results. (See course narrative for further detail) 07/12/23 11:15 07/12/23 11:15 Labs: Lab Results 07/12/23 07/12/23 Range/Units 11:15 14:31 WBC 7.6 (4.8-10.8) X10*3/uL RBC 4.47 (4.20-5.50) X10*6/uL Hgb 13.5 (12.0-16.0) g/dl Hct 40.4 (37.0-47.0) % MCV 90.4 (80.0-98.0) fL MCH 30.2 (27.0-33.0) pg MCHC 33.4 (31.0-35.0) g/dl RDW 12.7 (11.0-16.0) % Plt Count 226 (160-400) X10*3/uL MPV 10.5 (9.4-12.3) fL Immature Gran % (Auto) 0.4 (0.0-0.4) % Neut % (Auto) 57.2 (45-73) % Lymph % (Auto) 33.2 (20-40) % Douglas % (Auto) 7.8 (2-11) % Eos % (Auto) 0.7 (0-4) % Baso % (Auto) 0.7 (0-2) % Lymph # (Auto) 2.5 (1.2-4.9) X10*3/uL Douglas # (Auto) 0.6 (0.1-1.2) X10*3/uL Eos # (Auto) 0.1 (0.0-0.4) X10*3/uL Baso # (Auto) 0.1 (0.0-0.2) X10*3/uL Abs Immat Gran (auto) 0.03 (0.00-0.03) X10*3/uL Absolute Neuts (auto) 4.4 (2.0-8.3) x10*3/uL Absolute Nucleated RBC 0.000 (0.0-0.012) X10*3/uL Nucleated RBC % (auto) 0.0 (0.0-0.2) /100WBC Sodium 141 (135-145) mmol/L Potassium 4.0 (3.3-5.1) mmol/L Chloride 111 H (96-108) mmol/L Carbon Dioxide 24 (22-29) mmol/L Anion Gap 10 L (12-20) BUN 12 (9-16) mg/dL Creatinine 0.76 (0.5-1.4) mg/dL Estim Creat Clear Calc 68.1 Estimated GFR > 60 Random Glucose 94 (60-115) mg/dL Calcium 9.5 (8.4-10.2) mg/dL Total Bilirubin 0.5 (0.0-1.0) mg/dL Direct Bilirubin 0.2 (0.0-0.5) mg/dL AST 13 (5-31) U/L ALT 11 (0-31) U/L Alkaline Phosphatase 76 (39-117) U/L Total Protein 7.6 (6.5-8.0) g/dL Albumin 4.0 (3.5-5.0) g/dL Lipase 16 (8-78) U/L Urine Color Yellow Urine Appearance Clear Urine pH 5.5 (5.0-9.0) Ur Specific [place] 1.020 (1.005-1.025) Urine Protein Negative (Neg-Trace) mg/dL Urine Glucose (UA) Negative (Negative) mg/dL Urine Ketones Negative (Negative) mg/dL Urine Blood Negative (Negative) Urine Nitrite Negative (Negative) Ur Leukocyte Esterase Negative (Negative) Urine Test NEGATIVE (NEGATIVE) Influenza Type A (PCR) NEGATIVE (Negative) Influenza Type B (PCR) NEGATIVE (Negative) RSV RNA Qual (PCR) NEGATIVE (Negative) SARS-CoV-2 RNA (RT-PCR) NEGATIVE (Negative) Radiology Impression Discussion of test interpretation with radiology: I have reviewed the radiologist's reading. Radiologist Impression: CT/CT abdomen pelvis w IV con IMPRESSION: No acute intra-abdominal/intrapelvic abnormality is identified to explain the patient's right lower quadrant pain. External Record Review External record reviewed: Outpatient record Medications Administered Discontinued Medications Generic Name Dose Route Start Last Admin Trade Name Freq PRN Reason Stop Dose Admin Sodium Chloride 1,000 mls @ 999 mls/hr 07/12/23 18:45 07/12/23 20:54 Ns IV 07/12/23 19:45 Infused .Q1H1M DAVIDE Infusion Iohexol 100 ml 07/12/23 20:05 07/12/23 20:06 Iohexol 350 Mg/Ml 100 Ml Infus..Btl IV 07/12/23 20:06 85 ml ONCE ONE Administration Ketorolac Tromethamine 30 mg 07/12/23 18:34 07/12/23 19:27 Ketorolac Tromethamine 30 Mg/Ml Vial IVPUSH 07/12/23 18:35 30 mg ONCE ONE Administration Discharge Plan Discharge Clinical Impression: Abdominal pain Instructions: Abdominal Pain (ED) Additional Instructions: As discussed the CT scan does not show any cause for your pain. It is possible that this may be secondary to something that she ate or a gastrointestinal virus. Take Zofran as needed for nausea/vomiting every 8 hours. Take dicyclomine for abdominal pain Follow-up with your primary care provider within 3 days. Return back to emergency department any new or worsening symptoms or concerns. Prescriptions: New ondansetron 4 mg tablet,disintegrating 4 mg PO Q8H PRN (Reason: nausea and vomiting) Qty: 14 0RF dicyclomine 10 mg capsule 10 mg PO TID Qty: 20 0RF No Action amoxicillin-pot clavulanate 875-125 mg tablet 1 tab PO BID Qty: 14 0RF prednisone 20 mg tablet 40 mg PO DAILY 5 Days Qty: 10 0RF hydrocortisone 2.5 % cream 1 appl topical BID Qty: 20 0RF loratadine 10 mg tablet 10 mg PO DAILY Qty: 14 0RF buspirone 5 mg tablet 5 mg PO BID Referrals: Aiden Quezada MD [Primary Care Provider] -
[2023-07-12 18:58] VITALS: BP 117/50; PULSE 61; RESP 16; TEMP 36.9; O2SAT 96
[2023-07-12] MEDS: 0.9 % Sodium Chloride 1,000 ML 999 ML IV (19:27)
[2023-07-12] MEDS: Ketorolac Tromethamine 30 MG/ML VIAL IVPUSH (19:27)
[2023-07-12] MEDS: iohexoL 350 MG/ML 100 ML INFUS..BTL IV (20:06)
[2023-07-12 20:41] VITALS: BP 101/48; PULSE 72; RESP 20; TEMP 36.6; O2SAT 96
[2023-07-13 00:21] VITALS: BP 115/56; PULSE 64; RESP 20; TEMP 36.6; O2SAT 95
[2023-07-13 01:45] VITALS: BP 107/50; PULSE 70; RESP 14; TEMP 36.6; O2SAT 95
== END 2023-07-13 01:52 | disposition home or self-care (01) ==
PROVIDERS: Physician Assistant Medical; Emergency Provider Internal Medicine; PCP Internal Medicine
DX: R10.31 Right lower quadrant pain (principal); Z11.52 Encounter for screening for COVID-19; Z20.828 Contact with and (suspected) exposure to other viral communicable diseases
CPT/HCPCS: 0241U; 36415; 74177; 80048; 80076; 81003; 81025; 83690; 85025; 96361; 96374; 99284; 99285; J1885; Q9967

== ENCOUNTER 2023-09-08 01:01 | Emergency (ER) | payer OTHER, SELFPAY ==
--- NOTE | ~2023-09-08 | CT_ITS ---
EXAMINATION: NONCONTRAST HEAD CT NONCONTRAST FACIAL BONES CT NONCONTRAST CERVICAL SPINE CT INDICATION INFORMATION: Fall, pain COMPARISON: 09/27/2020 TECHNIQUE: Separate noncontrast CT examinations of the head, maxillofacial bones, and cervical spine were performed. Coronal and sagittal images were created for each examination at the technologist workstation. DOSE LOWERING TECHNIQUES: This CT examination was performed using dose optimization techniques as appropriate, variously including the following: - Automated exposure control - Adjustment of mA and/or kV according to patient size (this includes techniques or standardized protocols for targeted exams were dose is matched to indication/reason for exam; i.e. extremities or head) - Use of iterative reconstruction technique DLP: 1248 mGy-cm FINDINGS: Head: There is no evidence of acute intracranial hemorrhage or territorial infarction. No abnormal mass-effect or midline shift is seen. [place] to white matter differentiation is well preserved. No extra-axial fluid collections are identified. Mild asymmetry in the lateral ventricles is unchanged from prior. No evidence of hydrocephalus. There is no abnormal attenuation within the brain parenchyma. The osseous structures and soft tissues are normal. The mastoid air cells are well aerated. Maxillofacial: No acute maxillofacial fractures are seen. Mild subcutaneous edema anterior to the mandible along the midline There is slight mucosal thickening of the right maxillary sinus inferiorly. Mild opacification of the anterior right ethmoid air cells. Remaining paranasal sinuses are well aerated. There is minimal leftward bowing of the nasal septum. The mandibular condyles are well-seated in the condylar fossa. The orbits demonstrate a normal appearance bilaterally. The globes are intact, and there are no suspicious findings to suggest retrobulbar hemorrhage. Cervical spine: Minimal grade 1 anterolisthesis of C4 on C5, favored to be chronic/degenerative in nature. Vertebral body heights are maintained. Mild disc space narrowing and endplate osteophyte formation of the lower cervical spine. Scattered mild to moderate bilateral facet arthropathy. No evidence of acute fracture. No prevertebral soft tissue swelling. Visualized portions of the lung apices are unremarkable. The thyroid gland is unremarkable. CT/CT cervical spine w IV con IMPRESSION: 1. No acute intracranial findings. 2. No facial fracture identified. Mild subcutaneous edema anterior to the mandible along the midline. 3. No acute findings identified in the cervical spine.
[2023-09-08 01:21] VITALS: BP 121/54; PULSE 78; RESP 16; TEMP 36.6; O2SAT 100; BMI 29.4
--- NOTE | 2023-09-08 01:31 | ECG_ITS ---
Test Reason : DIZZINESS Blood Pressure : / mmHG Vent. Rate : 075 BPM Atrial Rate : 075 BPM P-R Int : 156 ms QRS Dur : 076 ms QT Int : 374 ms P-R-T Axes : 029 008 037 degrees QTc Int : 417 ms Normal sinus rhythm Normal ECG When compared to the previous EKG of No significant changes seen Referred By: Generic ED Physician Electronically Signed By:Leo Archuleta
[2023-09-08 01:55] LABS: MANUAL DIFF FLAG NO
[2023-09-08 01:56] LABS: Basophils Absolute Auto 0.1 X10*3/uL (0.0-0.2); Basophils Percent Auto 0.7 % (0-2); Eosinophils Absolute Auto 0.1 X10*3/uL (0.0-0.4); Eosinophils Percent Auto 1.8 % (0-4); Hematocrit 37.5 % (37.0-47.0); Hemoglobin 12.6 g/dl (12.0-16.0); Imm Gran Abs Auto 0.02 X10*3/uL (0.00-0.03); Imm Gran Pct Auto 0.3 % (0.0-0.4); Lymphocytes Absolute Auto 3.2 X10*3/uL (1.2-4.9); Mean Corpuscular HGB Conc 33.6 g/dl (31.0-35.0); Mean Corpuscular Hemoglobin 30.5 pg (27.0-33.0); Mean Corpuscular Volume 90.8 fL (80.0-98.0); Mean Platelet Volume 10.4 fL (9.4-12.3); Monocytes Absolute Auto 0.5 X10*3/uL (0.1-1.2); Monocytes Percent Auto 6.7 % (2-11); Neutrophils Absolute Auto 2.9 x10*3/uL (2.0-8.3); Neutrophils Percent Auto 43.5 % (45-73); Platelet Count 219 X10*3/uL (160-400); Red Blood Count 4.13 X10*6/uL (4.20-5.50); Red Cell Distribution Width 13.1 % (11.0-16.0); White Blood Count 6.8 X10*3/uL (4.8-10.8)
[2023-09-08 02:07] LABS: Anion Gap 14 (12-20); Blood Urea Nitrogen 18 mg/dL (9-16); Calcium 9.1 mg/dL (8.4-10.2); Carbon Dioxide 21 mmol/L (22-29); Chloride 111 mmol/L (96-108); Creatinine Clr Calc Pharmacy 74.1; Estimated Glomerular Filt Rate > 60; Glucose Random 153 mg/dL (60-115); Potassium 3.5 mmol/L (3.3-5.1); Sodium 142 mmol/L (135-145)
--- NOTE | 2023-09-08 03:00 | PC.NURSE ---
pt dressing dry and intact no bleeding noted.
[2023-09-08 05:21] VITALS: BP 102/54; PULSE 78; RESP 16; TEMP 36.9; O2SAT 97
--- NOTE | 2023-09-08 06:03 | ED.FALL ---
HPI - Fall General Chief Complaint: Fall Stated Complaint: bleeding from head Time Seen by Provider: 09/08/23 05:37 Source: patient Mode of arrival: ambulatory History of Present Illness HPI Narrative: 57-year-old female got up in the middle the night, felt briefly dizzy and fell striking the right side of her head and reports pain to her jaw on the right side. Patient reports she has been drinking. Related Data Home Medications ?Medication ?Instructions ?Recorded ?Confirmed buspirone 5 mg tablet 5 mg PO BID 07/16/21 10/08/22 Previous Rx's ?Medication ?Instructions ?Recorded hydrocortisone 2.5 % topical cream 1 appl topical BID #20 grams 10/25/22 loratadine 10 mg tablet 10 mg PO DAILY #14 tabs 10/25/22 prednisone 20 mg tablet 40 mg (2 x 20 mg) PO DAILY 5 days 10/25/22 #10 tabs amoxicillin 875 mg-potassium 1 tab PO BID #14 tabs 11/01/22 clavulanate 125 mg tablet dicyclomine 10 mg capsule 10 mg PO TID #20 caps 07/13/23 ondansetron 4 mg disintegrating 4 mg PO Q8H PRN nausea and 07/13/23 tablet vomiting #14 tabs Allergies Allergy/AdvReac Type Severity Reaction Status Date / Time No Known Allergies Allergy Verified 09/08/23 01:27 [No Known Allergies*] Review of Systems Review of Systems: Pertinent positives and negatives as stated in HPI [facility] Past Medical History Source: nursing notes reviewed Medical History Hepatitis C virus infection History of anxiety Surgical History Hx of section Family History Family History Mother History of breast cancer Maternal Grandmother Ovarian cancer Social History Social History Alcohol intake: current Alcohol intake frequency: a few times a month Patient Tobacco Use Status: Current everyday Tobacco user Cigarettes Per Day: 4 Smoked in Last 30 Days: Yes Use of substances other than those prescribed or required for medical reasons: No Advance Directives: No Do you have a plan to hurt others: No Plan Patient : No Sexual orientation: Straight/Heterosexual Gender identity: Female Physical Exam Vital Signs: Vital Signs: Last Vital Signs Temp 98.5 F 09/08/23 05:21 Pulse 78 09/08/23 05:21 Resp 16 09/08/23 05:21 BP 102/54 L 09/08/23 05:21 Pulse Ox 97 09/08/23 05:21 O2 Del Method Room Air 09/08/23 05:21 BMI result Body Mass Index 29.4 VITAL SIGNS: Reviewed. GENERAL: Well developed, well nourished, in no acute distress. HEAD: Normocephalic/scalp laceration at right occipital EYES: PERRLA, EOMI EARS: Ext canals without abnormality NOSE: Nares patent bilateral OROPHARYNX: no oral lesions noted, posterior pharynx clear NECK: Supple, no adenopathy LUNGS: Normal breath sounds. No adventitious sounds or accessory muscle use. SpO2<97> CARDIOVASCULAR: Regular rate and rhythm without noted murmurs ABDOMEN: Soft, non-tender, non-distended with bowel sounds. MUSCULOSKELETAL: No tenderness, deformities, or effusions noted on gross inspection. EXTREMITIES: No cyanosis, clubbing or edema. SKIN: Inspection of the skin reveals no rashes NEUROLOGIC: Alert and oriented x 4. Strength and sensation to light touch were grossly intact x 4. Procedures Laceration Laceration 1: Site: scalp Side (If applicable): right Size (cm): 3 Description: linear Depth: simple, single layer Local Anesthetic: lidocaine 1% Amount of anesthesia used (mL): 2 Pre-repair: wound explored, irrigated extensively and deep structures intact Skin layer closed with: nylon Size (cm): 4-0 Number of sutures: 3 Technique: simple, interrupted Medical Decision Making Medical Decision Making [facility] Narrative: 57-year-old female with history and clinical presentation mechanical fall with scalp laceration and will rule out any intracranial hemorrhage/cervical spine or facial abnormalities. I reviewed all investigations and Hematologic indices are negative for leukocytosis/anemia/thrombocytopenia. Chemistry indices do not demonstrate RUSSEL or electrolyte abnormalities. CT scan of head/face/cervical spine is negative for any evidence of fracture/intracranial hemorrhage/cervical spine subluxation. Three sutures were placed in the right occipital scalp laceration with good hemostasis. Patient is otherwise discharged home. Differential Diagnosis Differential Diagnoses: The differential diagnosis associated with the presentation includes Please see the discussion Admission/Observation Consideration of admission/observation: Escalation of care including admission/observation considered Please see the discussion above Lab Data 09/08/23 01:47 09/08/23 01:47 Labs: Lab Results 09/08/23 Range/Units 01:47 WBC 6.8 (4.8-10.8) X10*3/uL RBC 4.13 L (4.20-5.50) X10*6/uL Hgb 12.6 (12.0-16.0) g/dl Hct 37.5 (37.0-47.0) % MCV 90.8 (80.0-98.0) fL MCH 30.5 (27.0-33.0) pg MCHC 33.6 (31.0-35.0) g/dl RDW 13.1 (11.0-16.0) % Plt Count 219 (160-400) X10*3/uL MPV 10.4 (9.4-12.3) fL Immature Gran % (Auto) 0.3 (0.0-0.4) % Neut % (Auto) 43.5 L (45-73) % Lymph % (Auto) 47.0 H (20-40) % [place] % (Auto) 6.7 (2-11) % Eos % (Auto) 1.8 (0-4) % Baso % (Auto) 0.7 (0-2) % Lymph # (Auto) 3.2 (1.2-4.9) X10*3/uL [place] # (Auto) 0.5 (0.1-1.2) X10*3/uL Eos # (Auto) 0.1 (0.0-0.4) X10*3/uL Baso # (Auto) 0.1 (0.0-0.2) X10*3/uL Abs Immat Gran (auto) 0.02 (0.00-0.03) X10*3/uL Absolute Neuts (auto) 2.9 (2.0-8.3) x10*3/uL Absolute Nucleated RBC 0.000 (0.0-0.012) X10*3/uL Nucleated RBC % (auto) 0.0 (0.0-0.2) /100WBC Sodium 142 (135-145) mmol/L Potassium 3.5 (3.3-5.1) mmol/L Chloride 111 H (96-108) mmol/L Carbon Dioxide 21 L (22-29) mmol/L Anion Gap 14 (12-20) BUN 18 H (9-16) mg/dL Creatinine 0.70 (0.5-1.4) mg/dL Estim Creat Clear Calc 74.1 Estimated GFR > 60 Random Glucose 153 H (60-115) mg/dL Calcium 9.1 (8.4-10.2) mg/dL Discharge Plan Discharge Clinical Impression: Laceration of scalp Patient Disposition: Home, Self-Care Instructions: Care For Your Stitches (ED), Laceration (ED) Additional Instructions: You will need to return to have 3 sutures removed in 5 days. Keep the area dry for 24 hours and then you may gently clean with soap and water and dry afterwards, use caution when combing her hair. Prescriptions: No Action amoxicillin-pot clavulanate 875-125 mg tablet 1 tab PO BID Qty: 14 0RF ondansetron 4 mg tablet,disintegrating 4 mg PO Q8H PRN (Reason: nausea and vomiting) Qty: 14 0RF dicyclomine 10 mg capsule 10 mg PO TID Qty: 20 0RF prednisone 20 mg tablet 40 mg PO DAILY 5 Days Qty: 10 0RF hydrocortisone 2.5 % cream 1 appl topical BID Qty: 20 0RF loratadine 10 mg tablet 10 mg PO DAILY Qty: 14 0RF buspirone 5 mg tablet 5 mg PO BID Referrals: Aiden Quezada MD [Primary Care Provider] - Print Language: Citizen Of [place]
[2023-09-08 06:18] VITALS: BP 108/58; PULSE 80; RESP 16; TEMP 36.8; O2SAT 97
== END 2023-09-08 06:19 | disposition home or self-care (01) ==
PROVIDERS: Emergency Provider Student in an Organized Health Care Education/Training Program; PCP Internal Medicine
DX: S01.01XA Laceration without foreign body of scalp, initial encounter (principal); R42 Dizziness and giddiness; R51.9 Headache, unspecified; M54.2 Cervicalgia; W26.9XXA Contact with unspecified sharp object(s), initial encounter; Y93.9 Activity, unspecified; Y92.9 Unspecified place or not applicable; Y99.8 Other external cause status
CPT/HCPCS: 12002; 36415; 70460; 70487; 72126; 80048; 85025; 93005; 99284

== ENCOUNTER → 2023-09-08 01:31 | Outpatient (BNV) | payer OTHER, SELFPAY | PROVIDERS: Emergency Provider Student in an Organized Health Care Education/Training Program; PCP Internal Medicine; Visit Provider Internal Medicine Cardiovascular Disease | DX: R42 Dizziness and giddiness (principal) | CPT/HCPCS: 93010 ==

== ENCOUNTER 2023-10-25 09:36 | Outpatient (REF) | payer OTHER, SELFPAY | END 2023-10-25 09:37 | disposition home or self-care (01) | LOC: HO.MAMMO 09:36 | PROVIDERS: PCP Internal Medicine; Visit Provider Internal Medicine | DX: Z12.31 Encounter for screening mammogram for malignant neoplasm of breast (principal) | CPT/HCPCS: 77063; 77067 ==

== ENCOUNTER → 2023-10-25 09:37 | Outpatient (BNV) | payer OTHER, SELFPAY | PROVIDERS: PCP Internal Medicine; Visit Provider Radiology Diagnostic Radiology | DX: Z12.31 Encounter for screening mammogram for malignant neoplasm of breast (principal) | CPT/HCPCS: 77063; 77067 ==

== ENCOUNTER 2023-10-26 10:23 | Outpatient (AMB) | payer OTHER, SELFPAY ==
[2023-10-26 10:27] VITALS: BP 110/62
--- NOTE | 2023-10-26 10:27 | MHC.OFFVIS ---
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 Present Information Interpreted: clinical only Product Safety Head: Product Safety Head Present Allergies No Known Allergies [No Known Allergies*] Allergy (Verified 10/26/23 10:39) Medication List - Last Reconciled 10/26/23 by Azalea Min CNM buspirone 5 mg PO BID dicyclomine 10 mg PO TID hydrocortisone 2.5% 1 appl topical BID ibuprofen 800 mg PO Q8H loratadine 10 mg PO DAILY Post menopausal: Yes Do you need a note to return to daycare/school/sports/work: No HPI 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 She is in good health she just got back from a trip from [place] visiting her parents in a with many of her kids. She is sexually active she has not concerned about any STDs she treated for hepatitis-C and she got checked last year the viral load is not detectable she is happy about that. She recently experienced a really bad headache with details with an explosive orgasm. And she discussed it with her doctor and he told her it was a sex migraine and gave her medication to take prophylactically for she is very sexually active enjoys it. She has not had any sex migraines since. [facility] Medical History Hepatitis C virus infection History of anxiety Surgical History Hx of section Family History Mother History of breast cancer Maternal Grandmother Ovarian cancer Social History Alcohol intake: current Alcohol intake frequency: a few times a month Patient Tobacco Use Status: Current everyday Tobacco user Cigarettes Per Day: 4 Sexual orientation: Straight/Heterosexual Gender identity: Female Female Reproductive History Menstrual Age of Menarche: 10 Total pregnancies: 4 Full term: 3 Date of last pap smear: 10/11/22 (negative ,previous pap 07/17/21,negative) History of abnormal pap smear: No Date of Mammogram: 10/21/23 (negative) Physical Exam Vital Signs: Last Vital Signs BP 110/62 10/26/23 10:27 Const General: healthy appearing, comfortable, no acute distress, well developed and alert Nutritional Appearance: average body habitus Orientation/consciousness: patient oriented x3 Limitations: no limitations HEENT Head: Yes normocephalic Neck Neck: Yes normal visual inspection Thyroid: Thyroid normal Chest Chest palpation & inspection: normal inspection of the chest Breast/axilla inspection: normal inspection of the breasts and normal inspection of the axillae Breast/axilla palpation: normal palpation of the breasts and normal palpation of the axillae Resp Effort & Inspection: normal respiratory effort GI Inspection: Yes normal to inspection, No Abdominal wall edema and No distended Palpation (GI): Soft to palpation and nontender Other: Vagina pink medium dryness cervix flattened against vaginal wall no abnormal discharge uterus small anteverted nontender adnexa nontender good tone Kegel General: Yes bladder normal to palpation External Female Exam: normal external appearance and normal appearance of the urethra Speculum Exam - Vagina: normal appearance of the vagina, normal palpation and normal vaginal discharge Speculum Exam - Cervix: normal appearance of the cervix, normal palpation and nontender Bimanual exam- vagina & uterus: normal bimanual exam, normal palpation, uterine size normal, bladder normal to palpation, consistency normal, normal palpation, uterine mobility normal, uterine shape normal, No Cervical tenderness present, non-tender and no cervical motion tenderness Bimanual Exam- Adnexa, other: normal adnexae, no masses, normal and No adnexal tenderness Neuro General: patient oriented x3 Assessment & Plan Assessment & Plan (1) Hepatitis C virus infection: Comment: treated by GI. viral load undetectable. Viral load repeated October 2022. Results to go to her primary care provider. Code(s): B19.20 - Unspecified viral hepatitis C without hepatic coma Category: Medical (2) Screen for sexually transmitted diseases: Code(s): Z11.3 - Encounter for screening for infections with a predominantly sexual mode of transmission Category: Medical (3) Cervical cancer screening: Comment: No history of abnormals until HPV positive July of 2021. Pap done 10/08/2022= negative with negative HPV. Code(s): Z12.4 - Encounter for screening for malignant neoplasm of cervix Category: Medical (4) Breast cancer screening: Comment: HAs mammogram coming up 10/21/2022, had mammogram 10/24/2024,neg. Code(s): Z12.39 - Encounter for other screening for malignant neoplasm of breast Category: Medical (5) Postmenopausal: Code(s): Z78.0 - Asymptomatic menopausal state Category: Medical (6) Well woman exam with routine gynecological exam: Code(s): Z01.419 - Encounter for gynecological examination (general) (routine) without abnormal findings Category: Medical Plan -----Discussed in this visit the following: healthy balanced diet, regular and consistent exercise, getting recommended health screens, doing the best she can for her particular health concerns, kegel exercises, pap smear screening and followup recommendations, mammography screening and SBE, normal changes in cycles in her life stage--- . Reviewed all HPI she is very happy with her sex life and isn't worried about any STIs just likes get checked with blood work once a year she knows that the hep C is undetectable at this point. She had her mammogram yesterday and feels good about that and she is taking good care of herself. Orders: Orders Hepatitis B Surface Antigen Today B19.20 - Unspecified viral hepatitis C without hepatic coma, Z01.419 - Encounter for gynecological examination (general) (routine) without abnormal findings, Z11.3 - Encounter for screening for infections with a predominantly sexual mode of transmission, Z12.39 - Encounter for other screening for malignant neoplasm of breast, Z12.4 - Encounter for screening for malignant neoplasm of cervix, Z78.0 - Asymptomatic menopausal state Syphilis Screen Today B19.20 - Unspecified viral hepatitis C without hepatic coma, Z01.419 - Encounter for gynecological examination (general) (routine) without abnormal findings, Z11.3 - Encounter for screening for infections with a predominantly sexual mode of transmission, Z12.39 - Encounter for other screening for malignant neoplasm of breast, Z12.4 - Encounter for screening for malignant neoplasm of cervix, Z78.0 - Asymptomatic menopausal state Hepatitis C Antibody Today B19.20 - Unspecified viral hepatitis C without hepatic coma, Z01.419 - Encounter for gynecological examination (general) (routine) without abnormal findings, Z11.3 - Encounter for screening for infections with a predominantly sexual mode of transmission, Z12.39 - Encounter for other screening for malignant neoplasm of breast, Z12.4 - Encounter for screening for malignant neoplasm of cervix, Z78.0 - Asymptomatic menopausal state HIV Ab/Ag Today B19.20 - Unspecified viral hepatitis C without hepatic coma, Z01.419 - Encounter for gynecological examination (general) (routine) without abnormal findings, Z11.3 - Encounter for screening for infections with a predominantly sexual mode of transmission, Z12.39 - Encounter for other screening for malignant neoplasm of breast, Z12.4 - Encounter for screening for malignant neoplasm of cervix, Z78.0 - Asymptomatic menopausal state CT NG by PCR Today Z11.3 - Encounter for screening for infections with a predominantly sexual mode of transmission Bacterial Vaginosis Panel Today N89.8 - Other specified noninflammatory disorders of vagina Coding Level of Care Code Est Pt Prev Care 40-64y(23178) Diagnoses Hepatitis C virus infection B19.20 Screen for sexually transmitted diseases Z11.3 Cervical cancer screening Z12.4 Breast cancer screening Z12.39 Postmenopausal Z78.0 Well woman exam with routine gynecological exam Z01.419
== END 2023-10-26 11:31 | disposition home or self-care (01) ==
LOC: HO.HWSM 10:23
PROVIDERS: PCP Internal Medicine; Visit Provider Advanced Practice Midwife
DX: Z01.419 Encounter for gynecological examination (general) (routine) without abnormal findings (principal); B19.20 Unspecified viral hepatitis C without hepatic coma; Z11.3 Encounter for screening for infections with a predominantly sexual mode of transmission; Z12.4 Encounter for screening for malignant neoplasm of cervix; Z12.39 Encounter for other screening for malignant neoplasm of breast; Z78.0 Asymptomatic menopausal state
CPT/HCPCS: 99396

== ENCOUNTER 2023-10-26 10:23 | Outpatient (REF) | payer OTHER, SELFPAY ==
[2023-10-26 23:14] LABS: CT PCR NOT DETECTED (Not Detect.); NG PCR NOT DETECTED (Not Detect.)
[2023-10-27 11:01] LABS: Bacterial Vaginosis PCR NEGATIVE (Negative); Candida Group PCR NOT DETECTED (Not Detect); Candida glab krusei PCR NOT DETECTED (Not Detect); Trichomonas vaginalis PCR NOT DETECTED (Not Detect)
== END 2023-10-26 10:24 | disposition home or self-care (01) ==
LOC: HO.LAB 10:23
PROVIDERS: PCP Internal Medicine; Visit Provider Advanced Practice Midwife
DX: Z01.419 Encounter for gynecological examination (general) (routine) without abnormal findings (principal); N89.8 Other specified noninflammatory disorders of vagina; B19.20 Unspecified viral hepatitis C without hepatic coma; Z78.0 Asymptomatic menopausal state; Z11.3 Encounter for screening for infections with a predominantly sexual mode of transmission
CPT/HCPCS: 0352U; 0353U; 99396

== ENCOUNTER 2023-10-26 11:54 | Outpatient (REF) | payer OTHER, SELFPAY ==
[2023-10-26 14:08] LABS: Syphilis Screen Nonreactive (Nonreactive)
[2023-10-26 14:09] LABS: HIV AB/AG Nonreactive (Nonreactive); HIV Num 1 0.04 S/CO (0.00-0.99); Hepatitis B Surface Antigen Negative (Negative); ~HepC Num1 14.66 S/CO (0.00-0.79); ~Hepatitis C Antibody Reactive (Nonreactive)
[2023-10-26 18:48] LABS: CT PCR NOT DETECTED (Not Detect.); NG PCR NOT DETECTED (Not Detect.)
== END 2023-10-26 11:55 | disposition home or self-care (01) ==
LOC: HO.10HDL 11:54
PROVIDERS: Advanced Practice Midwife; Visit Provider Advanced Practice Midwife
DX: N89.8 Other specified noninflammatory disorders of vagina (principal); Z20.2 Contact with and (suspected) exposure to infections with a predominantly sexual mode of transmission; Z12.4 Encounter for screening for malignant neoplasm of cervix; Z11.3 Encounter for screening for infections with a predominantly sexual mode of transmission; B19.20 Unspecified viral hepatitis C without hepatic coma; Z78.0 Asymptomatic menopausal state; Z12.39 Encounter for other screening for malignant neoplasm of breast
CPT/HCPCS: 0353U; 36415; 86780; 86803; 87340; 87389

== ENCOUNTER 2024-01-15 19:26 | Emergency (ER) | payer OTHER, SELFPAY ==
--- NOTE | ~2024-01-15 | XR_ITS ---
EXAMINATION: RIGHT KNEE CLINICAL INFORMATION: Atraumatic pain COMPARISON: 07/25/2017 TECHNIQUE: 2 views right knee FINDINGS: A tiny joint effusion is present. Otherwise, no bone, joint or soft tissue abnormality seen. XR/XR knee RT 2V IMPRESSION: Tiny joint effusion. Electronically signed by: Naif Dennis MD 01/16/2024 12:13 AM EDT
--- NOTE | ~2024-01-15 | US_ITS ---
EXAMINATION: US TRIPLEX LOWER EXTREMITY, RIGHT CLINICAL INFORMATION: Right leg pain COMPARISON: None available. TECHNIQUE: Color-flow triplex imaging with spectral analysis and compression Doppler were performed on the right lower extremity. FINDINGS: Respiratory variation, normal compression and augmented flow are noted throughout the right lower extremity. The visualized common femoral vein, superficial femoral vein, profunda femoral vein, popliteal vein and midcalf peroneal and posterior tibial venous segments show no evidence of deep venous thrombosis. The contralateral left common femoral vein appeared normal. A right leg popliteal cyst is present measuring 4.2 x 1.1 x 3.0 cm. Prominent right inguinal lymph node measures 1.1 cm. US/US venous duplex LE RT IMPRESSION: No evidence of deep venous thrombosis involving the right lower extremity. Electronically signed by: Niaf Dennis MD 01/16/2024 12:14 AM EDT
--- NOTE | 2024-01-15 19:47 | ED_ITS ---
HPI - General Adult General Chief complaint: Extremity Injury, Lower Stated complaint: right knee pain Time Seen by Provider: 01/15/24 21:04 Source: patient Mode of arrival: ambulatory Limitations: no limitations History of Present Illness ED Provider: Ken KINSEY HPI narrative: 58-year-old female history of hep C, presenting to the emergency department with right knee pain ongoing since this weekend, patient reports that he had been camping walking up and down a very steep hill and since then her knee has been bothering her. No blunt trauma. No numbness or tingling. She reports associated swelling overlying the right knee. No previous issues to right knee. Denies fevers, chills, chest pain, shortness of breath, lower extremity swelling, nausea, vomiting, abdominal pain. Related Data Home Medications ?Medication ?Instructions ?Recorded ?Confirmed buspirone 5 mg tablet 5 mg PO BID 07/16/21 10/26/23 ibuprofen 800 mg tablet 800 mg PO Q8H 10/26/23 10/26/23 Previous Rx's ?Medication ?Instructions ?Recorded hydrocortisone 2.5 % topical cream 1 appl topical BID #20 grams 10/25/22 loratadine 10 mg tablet 10 mg PO DAILY #14 tabs 10/25/22 dicyclomine 10 mg capsule 10 mg PO TID #20 caps 07/13/23 ketorolac 10 mg tablet 10 mg PO TID PRN pain 5 days #15 01/15/24 tabs prednisone 20 mg tablet 20 mg PO DAILY 5 days #5 tabs 01/15/24 Allergies Allergy/AdvReac Type Severity Reaction Status Date / Time No Known Allergies Allergy Verified 01/15/24 19:50 [No Known Allergies*] Review of Systems Review of Systems: Yes all other systems are reviewed and are negative PMFSH Past Medical History Attestation statement: The following information was validated with the patient. Source: old records reviewed and nursing notes reviewed Medical History Hepatitis C virus infection History of anxiety Surgical History Hx of section Family History Family History Mother History of breast cancer Maternal Grandmother Ovarian cancer Social History Social History Alcohol intake: current Alcohol intake frequency: a few times a month Patient Tobacco Use Status: Current everyday Tobacco user Cigarettes Per Day: 4 Advance Directives: No Advance Directives Information Provided: No Do you have a plan to hurt others: No Plan Sexual orientation: Straight/Heterosexual Gender identity: Female Physical Exam ED Vital Signs: Vital Signs - 24 hr 01/15/24 19:49 01/15/24 22:34 01/16/24 00:34 Temperature 97.4 F 97.9 F 97.9 F Pulse Rate 89 64 64 Respiratory Rate 14 19 19 Blood Pressure 110/51 L 115/62 115/62 Pulse Oximetry 99 98 98 Oxygen Delivery Method Room Air Room Air Room Air BMI result Body Mass Index 30.3 Course Course Course Narrative: This is an RME performed by Lashonda Curtis CNP: Additional HPI, ROS, PE not included below will be deferred to primary provider. Patient is a 58-year-old female who presents emergency department for evaluation of 1 week of right knee pain. Reports went camping and was frequently walking up and down a very steep hill and her pain developed soon thereafter that. She states that she has applied Biofreeze without much improvement. 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 Pain radiates diffusely through the anterior knee, to the posterior knee where she feels tightness. Has been ambulatory with steady gait. No s welling. 2+ DP/PT pulse. Reevaluation(s) Reevaluation #1: X-ray of knee pending, venous duplex pending. Time: 21:35 Reevaluation #2: DVT study negative. Patient to follow-up with the orthopedic team. Educated patient on diagnosis and treatment plan, answered all question, patient verbalizes understanding. At this time patient will be discharged home, advised to return with new or worsening symptoms. Educated on worrisome signs and symptoms and when to return. At this time I feel comfortable discharge home. Medications Administered Discontinued Medications Generic Name Dose Route Start Last Admin Trade Name Freq PRN Reason Stop Dose Admin Ketorolac Tromethamine 30 mg 01/15/24 21:36 09/14/24 22:17 Ketorolac Tromethamine 30 Mg/Ml Vial IM 01/15/24 21:37 30 mg ONCE ONE Administration Medical Decision Making Medical Decision Making [facility] Narrative: 58-year-old female presents with atraumatic right knee pain status post going up and down hill while camping. Physical exam with mild effusion to right knee, full range of motion bilaterally slight discomfort with range of motion overlying right knee. No erythema or edema. 2+ popliteal pulses equal bilateral. 2+ dorsalis pedis, anterior tibialis posterior tibialis pulses equal bilateral. History and physical exam concerning for osteoarthritis versus inflammatory arthritis versus effusion of right knee. Unlikely septic joint, neurovascular compromise, arterial or venous occlusion. Low suspicion for Coughlin cyst. Unlikely complete tear of ACL, MCL, PCL or meniscus Plan imaging. Differential Diagnosis Differential Diagnoses: The differential diagnosis associated with the presentation includes History and physical exam concerning for osteoarthritis versus inflammatory arthritis versus effusion of right knee. Unlikely septic joint, neurovascular compromise, arterial or venous occlusion. Low suspicion for Coughlin cyst. Unlikely complete tear of ACL, MCL, PCL or meniscus Admission/Observation Consideration of admission/observation: Escalation of care including admission/observation considered No indication Independent Interpretation I performed an independent interpretation of an: Plain X-Ray Radiology Impression Discussion of test interpretation with radiology: I have reviewed the radiologist's reading. External Record Review External record reviewed: Inpatient record, Office record, Outpatient record, Prior outpatient labs, Prior outpatient radiology, Primary care record and Outside ED record Prescription Management I considered prescription management with: Pain Medication Chronic Conditions Patient?s care impacted by: Other (hep c ) Critical Care Time Critical Care Time Critical Care Time: No Discharge Plan Discharge Clinical Impression: Knee pain, right Patient Disposition: Home, Self-Care Instructions: Knee Pain (ED) Additional Instructions: Take your medications as prescribed. If you were prescribed antibiotics today, it is important that you take your medication to their entirety, do not skip any doses, do not finish them early. Follow-up with your primary care provider this week. Return to the emergency department with new or worsening symptoms. Such as fevers, chills, chest pain, shortness of breath, nausea, vomiting, dizziness, headache, vision changes, lethargy In case of emergency call 911 XR/XR knee RT 2V IMPRESSION: Tiny joint effusion. Follow-up with the orthopedic team. Prescriptions: New prednisone 20 mg tablet 20 mg PO DAILY 5 Days Qty: 5 0RF ketorolac 10 mg tablet 10 mg PO TID PRN (Reason: pain) 5 Days Qty: 15 0RF Rx Instructions: Tolerated IM or IV in department No Action dicyclomine 10 mg capsule 10 mg PO TID Qty: 20 0RF hydrocortisone 2.5 % cream 1 appl topical BID Qty: 20 0RF loratadine 10 mg tablet 10 mg PO DAILY Qty: 14 0RF buspirone 5 mg tablet 5 mg PO BID ibuprofen 800 mg tablet 800 mg PO Q8H Referrals: [facility] [Provider Group] - 1 day Aiden Quezada MD [Primary Care Provider] - 2 days Stand Alone Forms: Work/School Release Interventions: ED Discharge Assessment Last Done: 01/16/24 00:34 Discharge Date/Time: 01/16/24 00:35 Print Language: Cymro
[2024-01-15 19:49] VITALS: BP 110/51; PULSE 89; RESP 14; TEMP 36.3; O2SAT 99; BMI 30.3
[2024-01-15] MEDS: Ketorolac Tromethamine 30 MG/ML VIAL IM (22:17)
[2024-01-15 22:34] VITALS: BP 115/62; PULSE 64; RESP 19; TEMP 36.6; O2SAT 98
[2024-01-16 00:34] VITALS: BP 115/62; PULSE 64; RESP 19; TEMP 36.6; O2SAT 98
== END 2024-01-16 00:35 | disposition home or self-care (01) ==
PROVIDERS: Emergency Provider Emergency Medicine Emergency Medical Services; PCP Internal Medicine
DX: M25.561 Pain in right knee (principal)
CPT/HCPCS: 73560; 93971; 96372; 99283; 99284; J1885

== ENCOUNTER 2024-01-31 09:32 | Outpatient (AMB) | payer MEDICAID, SELFPAY ==
--- NOTE | 2024-01-31 09:36 | A.OFFVIS_ITS ---
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
--- NOTE | 2024-01-31 09:37 | A.OFFVIS_ITS ---
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 Patient reports 2 weeks ago she was camping, walking up and down a very steep hill, and since then her knee has been hurt. Patient states that she take Motrin for pain and uses a brace for support. 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 The patient reports that at that time, she was camping, and she was at a camp set at the bottom of a hill, and the bathrooms relocated that the [facility], so she was walking up and down a steep hill multiple times per day, and she felt that by the end of her trip her right knee was in significant pain, although there was no acute injury or insult that incited this pain. 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 The patient states that she would like to be provided with a knee brace to be worn at work, as she feels that her knee sleeve she has now helps, but slipped down on a regular basis. No other acute complaints or concerns at this time. [facility] Medical History Hepatitis C virus infection History of anxiety Surgical History Hx of section Family History Mother History of breast cancer Maternal Grandmother Ovarian cancer Social History Alcohol intake: current Alcohol intake frequency: a few times a month Patient Tobacco Use Status: Current everyday Tobacco user Cigarettes Per Day: 4 Sexual orientation: Straight/Heterosexual Gender identity: Female Female Reproductive History Menstrual Age of Menarche: 10 Review of Systems Const All systems reviewed & are unremarkable except as noted in HPI and below Physical Exam Vital Signs: BMI result Body Mass Index 29.3 Extrem Other: On inspection, there is no visible deformity of the left knee No edema, erythema, ecchymosis noted No lacerations, abrasions, open areas No evidence of infection Very mild tenderness to palpation of both the medial and lateral joint lines, patient reports this is improved significantly from date of onset of pain no tenderness to palpation in the patella, parapatellar region, posterior knee Patient is able to extend the left knee to 0 degrees and flex to approximately 120 degrees without difficulty No ligamentous laxity noted Distal sensation intact Capillary refill brisk Negative Mary's Negative anterior drawer Negative patellar grind Results Reviewed Results Reviewed: X-rays obtained in the emergency department and independently reviewed by me, Speedy Reyes PA-C, demonstrate no fracture or acute bony abnormality. No evidence of arthritis. Assessment & Plan Assessment & Plan (1) Knee pain, right: Code(s): M25.561 - Pain in right knee Category: Medical Plan 1. Right knee pain Ongoing for approximately 1 month Patient is educated that she likely caused some inflammation in the soft tissue structures of her right knee while repeatedly ambulating up and down the steep hill Patient's symptoms have improved significantly since onset of pain, which is an encouraging sign However, the patient does report that she does still experience discomfort in the right knee when at work and having to push on the gas pedal, so she is provided with a knee brace to be worn with any strenuous daytime activity and while at work Patient is also referred to physical therapy for range of motion, strengthening, stabilization of the right knee Patient is amenable to this plan Patient will follow-up as needed with any acute concerns Orders: Orders PT Evaluation and Treatment Today M25.561 - Pain in right knee Coding Level of Care Code New Pt Level 3 (61826) Diagnoses Knee pain, right M25.561
[2024-01-31 09:39] VITALS: BMI 29.3
== END 2024-01-31 10:25 | disposition home or self-care (01) ==
PROVIDERS: PCP Internal Medicine
DX: M25.561 Pain in right knee (principal)
CPT/HCPCS: 99203

== ENCOUNTER → 2024-01-31 09:32 | Outpatient (BNVA) | payer MEDICAID, SELFPAY | PROVIDERS: PCP Internal Medicine | DX: M25.561 Pain in right knee (principal) | CPT/HCPCS: 99212 ==

== ENCOUNTER 2024-08-08 16:57 | Emergency (ER) | payer SELFPAY ==
--- NOTE | ~2024-08-08 | CT_ITS ---
CLINICAL HISTORY: trauma CT Right Knee WO Contrast COMPARISON: CR - XR KNEE RT 3V - 08/08/24 17:43 EDT FINDINGS: No acute fracture or malalignment. Small degenerative subchondral cysts in the tibial plateau. Mild degenerative bony spurring. Small effusion. Soft tissues are normal. IMPRESSION: No acute fracture. Small effusion. Nonemergent/incidental findings above. This document has been electronically signed by: Allen Shahid MD on 08/08/2024 20:13:18
--- NOTE | ~2024-08-08 | XR_ITS ---
CLINICAL HISTORY: pain Right knee, 3 views, 5 images COMPARISON: CR/TN/SR - XR KNEE RT 2V - 01/15/24 21:18 EDT FINDINGS: No acute fracture. No dislocation. No visible effusion. Unremarkable soft tissues. IMPRESSION: No acute findings. This document has been electronically signed by: Allen Shahid MD on 08/08/2024 18:24:55
[2024-08-08 17:03] VITALS: BP 132/84; PULSE 80; RESP 19; TEMP 36.6; O2SAT 98; BMI 29.3
--- NOTE | 2024-08-08 17:07 | ED.GENADULT ---
HPI - General Adult General Chief complaint: Extremity Injury, Lower Stated complaint: R leg pain Time Seen by Provider: 08/08/24 18:09 Source: patient History of Present Illness ED Provider: Ronit Evans PA-C HPI narrative: 58-year-old female with a history of hep C who presents with right knee pain times several weeks. Patient states she dropped a heavy box on the top of right knee, she has had ongoing pain since. Pain most prominent over both medial and laterally and posterior knee. Patient has pain with flexion and extension and with ambulation. There is no swelling. This is the 1st medical assessment the patient has had since her injury. Related Data Home Medications ?Medication ?Instructions ?Recorded ?Confirmed buspirone 5 mg tablet 5 mg PO BID 07/16/21 10/26/23 ibuprofen 800 mg tablet 800 mg PO Q8H 10/26/23 10/26/23 Previous Rx's ?Medication ?Instructions ?Recorded hydrocortisone 2.5 % topical cream 1 appl topical BID #20 grams 10/25/22 loratadine 10 mg tablet 10 mg PO DAILY #14 tabs 10/25/22 dicyclomine 10 mg capsule 10 mg PO TID #20 caps 07/13/23 ketorolac 10 mg tablet 10 mg PO TID PRN pain 5 days #15 01/15/24 tabs prednisone 20 mg tablet 20 mg PO DAILY 5 days #5 tabs 01/15/24 ketorolac 10 mg tablet 10 mg PO Q6H PRN pain #20 tabs 08/08/24 methocarbamol 750 mg tablet 750 mg PO BEDTIME PRN pain, 08/08/24 moderate #7 tabs Allergies Allergy/AdvReac Type Severity Reaction Status Date / Time No Known Allergies Allergy Verified 08/08/24 17:04 [No Known Allergies*] Review of Systems Review of Systems: Yes all other systems are reviewed and are negative Constitutional: Constitutional: Denies fatigue and Denies fever(s) Musculoskeletal: Musculoskeletal: Reports arthralgias and Denies joint swelling Endocrine: Endocrine: Denies fatigue PMFSH Past Medical History Attestation statement: The following information was validated with the patient. Medical History Hepatitis C virus infection History of anxiety Surgical History Hx of section Family History Family History Mother History of breast cancer Maternal Grandmother Ovarian cancer Social History Social History Alcohol intake: current Alcohol intake frequency: a few times a month Patient Tobacco Use Status: Current everyday Tobacco user Cigarettes Per Day: 4 Smoked in Last 30 Days: No Advance Directives: No Advance Directives Information Provided: Yes Do you have a plan to hurt others: No Plan Patient : No Sexual orientation: Straight/Heterosexual Gender identity: Female Physical Exam ED Vital Signs: Vital Signs - 24 hr 08/08/24 17:03 08/08/24 19:09 Temperature 98 F 98.6 F Pulse Rate 80 76 Respiratory Rate 19 20 Blood Pressure 132/84 135/78 Pulse Oximetry 98 97 Oxygen Delivery Method Room Air Room Air BMI result Body Mass Index 29.3 Const Other: Alert Orientation/consciousness: patient oriented x3 Resp Effort & Inspection: normal respiratory effort Cardio Other: Normal peripheral perfusion Skin Other: Warm dry no rash Neuro General: patient oriented x3, gait normal, no focal motor deficits and CN's II-XI intact bilaterally Extrem Other: No objective swelling over the right knee, she is able to fully flex and extend, no deformity she has been ambulating since the injury Psych Other: Cooperative Course Course Course Narrative: RME, this is a rapid medical exam performed by Tio Sadny please refer to primary provider for complete H&P- 58-year-old female presents for evaluation of right knee pain. She reports dropping a box onto the right knee. Plan for x-ray. She was ambulatory Medications Administered Discontinued Medications Generic Name Dose Route Start Last Admin Trade Name Freq PRN Reason Stop Dose Admin Ketorolac Tromethamine 15 mg 08/08/24 19:20 08/08/24 19:37 Ketorolac Tromethamine 15 Mg/Ml Vial IM 08/08/24 19:21 15 mg ONCE ONE Administration Medical Decision Making Medical Decision Making MDM Narrative: 58-year-old female with a history of hep C who presents with right knee pain times several weeks. Patient states she dropped a heavy box on the top of right knee, she has had ongoing pain since. Pain most prominent over both medial and laterally and posterior knee. Patient has pain with flexion and extension and with ambulation. There is no swelling. This is the 1st medical assessment the patient has had since her injury. No relevant chronic issues History: Per patient I have considered the following differential diagnoses: Fracture, dislocation, contusion, sprain Plan: X-ray ordered from triage, it was negative. Given her ongoing discomfort, I am ordering a CT scan to be sure there was no occult injury. Giving Toradol for pain. I have independently reviewed the following tests: X-ray right knee:FINDINGS: No acute fracture. No dislocation. No visible effusion. Unremarkable soft tissues. IMPRESSION: No acute findings. CT right knee:FINDINGS: No acute fracture or malalignment. Small degenerative subchondral cysts in the tibial plateau. Mild degenerative bony spurring. Small effusion. Soft tissues are normal. IMPRESSION: No acute fracture. Small effusion. Nonemergent/incidental findings above. Discharge Plan Discharge Clinical Impression: Contusion of knee, right, Osteoarthritis Patient Disposition: Home, Self-Care Instructions: Osteoarthritis (ED), Contusion in Adults (ED) Additional Instructions: No fracture or dislocation was noted on the x-ray or the CT scan. You have a small joint effusion, which can affect flexion and extension of the knee. Use the ketorolac as directed, this is an anti-inflammatory, take it with food. Use the methocarbamol as needed at night for sleep, this is a muscle relaxant. It does cause drowsiness do not drive or operate machinery while taking the medication. Follow up with primary care, if your symptoms persist, you will require orthopedic consult for further assessment. Prescriptions: New ketorolac 10 mg tablet 10 mg PO Q6H PRN (Reason: pain) Qty: 20 0RF Rx Instructions: maximum total duration of 5 days from all oral, intranasal, or parenteral formulations. The patient received an intramuscular dose of Toradol here in the emergency room methocarbamol 750 mg tablet 750 mg PO BEDTIME PRN (Reason: pain, moderate) Qty: 7 0RF No Action dicyclomine 10 mg capsule 10 mg PO TID Qty: 20 0RF prednisone 20 mg tablet 20 mg PO DAILY 5 Days Qty: 5 0RF ketorolac 10 mg tablet 10 mg PO TID PRN (Reason: pain) 5 Days Qty: 15 0RF Rx Instructions: Tolerated IM or IV in department hydrocortisone 2.5 % cream 1 appl topical BID Qty: 20 0RF loratadine 10 mg tablet 10 mg PO DAILY Qty: 14 0RF buspirone 5 mg tablet 5 mg PO BID ibuprofen 800 mg tablet 800 mg PO Q8H Print Language: [place]an
[2024-08-08 19:09] VITALS: BP 135/78; PULSE 76; RESP 20; TEMP 37; O2SAT 97
--- OUTSIDE RECORDS SUMMARY | 2024-08-08 19:22 | XMS_ITS | Clinical Summary ---
Author Organization [facility] Address [address] [place] [address] Care Team Providers Care Photo Retoucher Name Role Phone Unavailable Primary Care Provider Unavailabl e Allergies No known active allergies Medications No known medications Active Problems Problem Noted Date Diagnosed Date Dental caries 11/06/2022 Social History Tobacco Use Types Packs/Day Years Used Date Smoking Tobacco: Former Cigarettes 0.3 0.5 Passive Smoke Exposure: Past Smokeless Tobacco: Former Tobacco Cessation:Counseling Given: Not Answered Alcohol Use Standard Drinks/Week Comments Defer 0 (1 standard drink = 0.6 oz pur e alcohol) Comments Unknown Sex and Gender Information Value Date Recorded Sex Assigned at Female 03/02/2022 10:26 AM EDT Legal Sex Female 10:26 AM EDT Gender Identity Female 11/06/2022 8:33 AM EDT Sexual Orientation Don't know 11/06/2022 8: 33 AM EDT Plan of Treatment Health Maintenance Due Date Last Done Comments CT Colonography 1966 Colonoscopy 1966 Colorectal Cancer Screening 1966 Dental Prophylaxis 1966 Depression Screening 1966 FIT DNA/Cologuard 1966 FIT 1966 FOBT 1966 HIV Screening 1966 SDOH Screening 1966 Sigmoidoscopy 1966 Alcohol/Substance Use Screening 1978 Hepatitis A Vaccines (1 of 2 - Risk 2-dose series) 1985 Hepatitis B Vaccines (1 of 3 - 19+ 3-dose series) 1985 Pap Smear 09/26/1987 Cervical Cancer Screening 1996 HPV/Cotest 1996 Mammogram 2006 Pneumococcal Vaccine: 50+ Years (1 of 1 - PCV) 2016 Zoster Vaccines (1 of 2) 2016 Dental X-Ray: Bitewings 05/13/2017 05/12/19 17, 07/18/2015 Dental Oral Exam 07/27/2017 01/26/2017, 05/12/2016, 07/18/2015 Tobacco Screening 11/07/2023 11/06/2022 COVID-19 Vaccine (1 - 2023-2 5 season) 2024 Influenza Vaccine (#1) 2024 DTaP/Tdap/Td Vaccines (2 - T d or Tdap) 08/10/2025 08/11/2015 Dental X-Ray: Full Mouth 11/07/2025 11/06/2022 RSV Patients and Patients Aged 60 years or older (1 - 1-dose 75+ series) 2041 HIB Vaccines Aged Out No longer eligi ble based on patient's age to complete this topic HPV Vaccines Aged Out No longer eligi ble based on patient's age to complete this topic IPV Vaccines Aged Out No longer eligi ble based on patient's age to complete this topic Meningococcal Vaccine Aged Out No chris ankit eligible based on patient's age to complete this topic RSV under 20 months Aged Out No longe r eligible based on patient's age to complete this topic Rotavirus Vaccines Aged Out No longer eligible based on patient's age to complete this topic Procedures Procedure Name Priority Date/Time Associated Diagnosis Comments PANORAMIC RADIOGRAPHIC IMAGE Routine 11/06/2022 1:00 PM EDT PERIODIC ORAL EVALUATION - ESTABLISHED PATIENT Routine 01/26/2017 12:00 AM EDT BITEWINGS - 4 RADIOGRAPHIC IMAGES Routine 05/12/2016 12:00 AM EST from Last 3 Months or Most Recently Relevant to Health Maintenance [facility]
--- OUTSIDE RECORDS SUMMARY | 2024-08-08 19:23 | XMS_ITS | Data Portability ---
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 [facility] Internal Medicine 04/16/2021 16:19:12 2 text/html Annual WellnessReported bypatient.Diet and Nutrition:healthy diet Fracture Risk:no history of fractures; no recent explained fracture; no sudden unexplained fractures; no previous musculoskeletal injuries Physical Activity:exercises on a regular basis; recent increase in physical activity; good physical condition Additional Lifestyle Factors:no tobacco use; no alcohol intake; stopped drinking alcohol Depression Risk:never feels sad, empty, or tearful; no loss of interest in activities; no significant changes in weight; no sleep disturbances or insomnia; no agitation; no loss of energy; no feelings of worthlessness or guilt; no thoughts of suicide; no history of depression; no history of mood disorders Hearing:no loss of hearing Vision:no vision problemsNotes:having problems with her feet have been sore after wlking present for years Aiden Quezada DO [address] [place] [address], [phone], [facility] Internal Medicine 03/10/2022 09:56:08 3 text/html here for rechk and is doing ok overalloverall has gained a little weighthere for rechkno cp no sobworks 6 days a week very busy Aiden Quezada DO [address] [place] [address], [phone], [facility] Internal Medicine 09/09/2022 09:59:37 4 text/html f/u suture removal patient fell and hit her head on the ground, right side, no LOC, no vision changes, [facility]ss[facility], three suturesremoved in office todayhealing well, scab formed, told to avoid pulling off the scab looked at her ribs, right side, no obvious bruising some swelling otherwise no signs of fractures no other injuries, no other symptoms associated with fall otherwise doing well TODD DAO [address] [place] [address], [phone], [facility] Internal [facility] 09/15/2023 10:59:47 4 text/html Annual WellnessReported bypatient.Diet and Nutrition:healthy diet Fracture Risk:no history of fractures; no recent explained fracture; no sudden unexplained fractures; no previous musculoskeletal injuries Physical Activity:exercises on a regular basis; recent increase in physical activity; good physical condition Additional Lifestyle Factors:no tobacco use; no alcohol intake; stopped drinking alcohol Depression Risk:never feels sad, empty, or tearful; no loss of interest in activities; no significant changes in weight; no sleep disturbances or insomnia; no agitation; no loss of energy; no feelings of worthlessness or guilt; no thoughts of suicide; no history of depression; no history of mood disorders Hearing:no loss of hearing Vision:no vision problems Aiden Quezada, DO [address] [place], [phone], [facility] Internal Medicine 10/12/2023 10:30:13 OBGyn Episode No OBEpisode recorded.
--- NOTE | 2024-08-08 19:32 | PC.NURSE ---
Patient returned from imaging. Awaiting results. Toradol IM to be administered as ordered.
[2024-08-08] MEDS: Ketorolac Tromethamine 15 MG/ML VIAL IM (19:37)
[2024-08-08 21:42] VITALS: BP 135/78; PULSE 76; RESP 20; TEMP 37; O2SAT 97
== END 2024-08-08 21:42 | disposition home or self-care (01) ==
PROVIDERS: Emergency Provider Emergency Medicine; PCP Internal Medicine
DX: M17.11 Unilateral primary osteoarthritis, right knee (principal); S80.01XA Contusion of right knee, initial encounter; W20.8XXA Other cause of strike by thrown, projected or falling object, initial encounter; M25.561 Pain in right knee; Y93.89 Activity, other specified; Y92.9 Unspecified place or not applicable; Y99.9 Unspecified external cause status
CPT/HCPCS: 73562; 73700; 96372; 99284; J1885

== ENCOUNTER → 2024-08-08 17:07 | Outpatient (BNV) | payer MEDICAID, SELFPAY | PROVIDERS: PCP Internal Medicine; Visit Provider Radiology Diagnostic Radiology | DX: M25.561 Pain in right knee (principal); M25.461 Effusion, right knee | CPT/HCPCS: 73562; 73700 ==

== ENCOUNTER 2024-10-18 10:26 | Outpatient (REF) | payer OTHER, SELFPAY ==
--- OUTSIDE RECORDS SUMMARY | 2024-10-18 11:50 | XMS_ITS | Clinical Summary ---
Author Organization [employer] Address [address] [facility] [address] [place] [address] Care Team Providers Care Web Press Roll Tender Name Role Phone Unavailable Primary Care Provider [...] Screening 1966 SDOH Screening 1966 Sigmoidoscopy 1966 Disability Screening 1966 Alcohol/Substance Use Screening 1978 Hepatitis A [...] - 2023-2 5 season) 2024 Influenza Vaccine (Season Ended) 2025 DTaP/Tdap/Td Vaccines (2 - T d or [...] patient's age to complete this topic Meningococcal B Vaccine Aged Out No l onger eligible based on patient's age to complete [...] Most Recently Relevant to Health Maintenance Insurance [facility] MEDICAID STAND ADULT
[2024-10-18 13:34] LABS: MANUAL DIFF FLAG NO
[2024-10-18 13:42] LABS: Basophils Percent Auto 0.6 % (0-2); Eosinophils Absolute Auto 0.1 X10*3/uL (0.0-0.4); Eosinophils Percent Auto 1.9 % (0-4); Hematocrit 39.7 % (37.0-47.0); Hemoglobin 13.2 g/dl (12.0-16.0); Imm Gran Abs Auto 0.01 X10*3/uL (0.00-0.03); Imm Gran Pct Auto 0.2 % (0.0-0.4); Lymphocytes Absolute Auto 2.1 X10*3/uL (1.2-4.9); Lymphocytes Percent Auto 39.7 % (20-40); Mean Corpuscular HGB Conc 33.2 g/dl (31.0-35.0); Mean Corpuscular Hemoglobin 30.4 pg (27.0-33.0); Mean Corpuscular Volume 91.5 fL (80.0-98.0); Mean Platelet Volume 11.7 fL (9.4-12.3); Monocytes Absolute Auto 0.5 X10*3/uL (0.1-1.2); Monocytes Percent Auto 8.7 % (2-11); Neutrophils Absolute Auto 2.6 x10*3/uL (2.0-8.3); Neutrophils Percent Auto 48.9 % (45-73); Platelet Count 223 X10*3/uL (160-400); Red Blood Count 4.34 X10*6/uL (4.20-5.50); Red Cell Distribution Width 12.6 % (11.0-16.0); White Blood Count 5.4 X10*3/uL (4.8-10.8)
[2024-10-18 13:48] LABS: Estimated Average Glucose 117 mg/dL; Hemoglobin A1c % 5.7 % (<6.0)
[2024-10-18 13:56] LABS: Alanine Aminotransferase 18 U/L (0-31); Albumin Level 4.1 g/dL (3.5-5.0); Alkaline Phosphatase 76 U/L (39-117); Anion Gap 10 (12-20); Aspartate Amino Transferase 26 U/L (5-31); Bilirubin Total 0.4 mg/dL (0.0-1.0); Blood Urea Nitrogen 21 mg/dL (9-16); Calcium 9.3 mg/dL (8.4-10.2); Carbon Dioxide 23 mmol/L (22-29); Chloride 111 mmol/L (96-108); Cholesterol 204 mg/dL (<200); Estimated Glomerular Filt Rate > 60; Glucose Random 113 mg/dL (60-115); HDL Cholesterol 46 mg/dL (>40); LDL Cholesterol Calculated 138 mg/dL (<100); Potassium 4.2 mmol/L (3.3-5.1); Sodium 140 mmol/L (135-145); Total Protein 7.3 g/dL (6.5-8.0); Triglycerides 101 mg/dL (<150)
== END 2024-10-18 10:27 | disposition home or self-care (01) ==
LOC: HO.MANLDS 10:26
PROVIDERS: Visit Provider Physician Assistant
DX: Z00.00 Encounter for general adult medical examination without abnormal findings (principal)
CPT/HCPCS: 36415; 80053; 80061; 83036; 85025

== ENCOUNTER 2024-10-30 09:40 | Outpatient (REF) | payer OTHER, SELFPAY ==
--- OUTSIDE RECORDS SUMMARY | 2024-10-30 10:05 | XMS_ITS | Clinical Summary ---
Author Organization [employer] Address [address] [facility] [address] [place] [address] Care Team Providers Care Motorcycle Sales Associate Name Role Phone Unavailable Primary Care Provider [...] this topic Meningococcal Vaccine Aged Out No crhis ankit eligible based on patient's age to [...] Most Recently Relevant to Health Maintenance Insurance [facility] MEDICAID STAND ADULT
== END 2024-10-30 09:41 | disposition home or self-care (01) ==
LOC: HO.MAMMO 09:40
PROVIDERS: PCP Internal Medicine; Visit Provider Internal Medicine
DX: Z12.31 Encounter for screening mammogram for malignant neoplasm of breast (principal)
CPT/HCPCS: 77063; 77067

== ENCOUNTER → 2024-10-30 09:45 | Outpatient (BNV) | payer OTHER, SELFPAY | PROVIDERS: PCP Internal Medicine; Visit Provider Internal Medicine | DX: Z12.31 Encounter for screening mammogram for malignant neoplasm of breast (principal) | CPT/HCPCS: 77063; 77067 ==

== ENCOUNTER 2025-01-05 10:43 | Outpatient (REF) | payer MEDICAID, SELFPAY ==
--- NOTE | ~2025-01-05 | US_ITS ---
EXAMINATION(S): 1. MM DIAGNOSTIC DIGITAL BREAST TOMOSYNTHESIS, BILATERAL 2. Targeted ultrasound of the right breast 3. Targeted ultrasound of the left breast CLINICAL INFORMATION: Call back for bilateral breasts findings: Right: Asymmetry in the superior breast middle depth with questionable distortion on the MLO Left: Asymmetry in the superior breast middle to posterior depth on the MLO COMPARISON: Comparison made to multiple prior, most recent October 30, 2024, and most remote September 21, 2020. TECHNIQUE: Digital breast tomosynthesis is performed in full-field ML 90 degrees and MLO along with computer-aided detection (CAD). Synthesized 2D images are generated from the tomosynthesis. Spot compression tomosynthesis images were also obtained. FINDINGS: BREAST COMPOSITION: The breasts are heterogeneously dense, which may obscure small masses (ACR BI-RADS breast composition Category c). RIGHT BREAST: Previously described asymmetry in the upper breast on the MLO view partially effaces on today's images. Local parenchyma is similar to prior studies as far back as 2020. The correlating finding is likely located in the lateral breast on the CC view. Targeted ultrasound of the right breast was performed at the location of the mammographic finding. The survey throughout the upper outer quadrant did not reveal suspicious findings. LEFT BREAST: Previously described asymmetry in the upper breast on the MLO view partially effaces on today's images. Local parenchyma is similar to prior studies as far back as 2020. The correlating finding is likely located in the lateral breast on the CC view. Targeted ultrasound of the left breast was performed at the location of the mammographic finding. The survey throughout the upper outer quadrant did not reveal suspicious sonographic findings. US/US breast BI limited mamm only IMPRESSION: RIGHT BREAST: Negative, no evidence of malignancy. Normal interval follow-up is recommended in 12 months. LEFT BREAST: Negative, no evidence of malignancy. Normal interval follow-up is recommended in 12 months. ASSESSMENT: BI-RADS 1 - Negative RECOMMENDATION: 1 year F/U Results were provided to the patient at time of visit by the technologist. This patient's information was entered into a reminder system with a target due date for their next mammogram. Electronically signed by: Tien Aguilar MD 01/05/2025 02:00 PM EDT
--- OUTSIDE RECORDS SUMMARY | 2025-01-05 11:41 | XMS_ITS | Encounter Summary ---
Author Organization [facility] Address [address] [place] [address] Phone Care Team Providers Care Nursing Education Consultant Name Role Phone Unknown, Unknown Primary Care Provider Aiden Springer DO Primary Care Provider [phone] Aiden Quezada DO Unavailable Reason for Referral * MRI/CAT Scan - Closed Specialty Diagnoses / Procedures Referred By Js [email or web address] Referred To Contact Radiology Diagnoses Tear of left rotator cuff, unspecified tear extent, unspecified whether traumatic Procedures MRI Shoulder (Left) Aiden Quezada DO Phone: tel: fax: [email or web address] Referral ID Status Reason Start Date Expiration Date Visits Re quested Visits Authorized [id number] Closed 03/24/2021 03/21/2022 1 1 Encounter Details Date Type Department Care Team (Late st Contact Info) Description 03/24/2021 Transcribe Orders Virtual Department [address] [place] [address] Aiden Quezada DO [address] [facility] [place] [address] Tear of left rotator cuff, unspecified tear extent, unspecified whether traumatic (Primary Dx) Social History Tobacco Use Types Packs/Day Years Used Date Smoking Tobacco: Never Assessed Comments Unknown Sex and Gender Information Value Date Recorded Sex Assigned at Not on file Legal Sex Female 2:50 PM EST Gender Identity Not on file Sexual Orientation Not on file documented as of this encounter Plan of Treatment Not on file documented as of this encounter Results * MRI SHOULDER WITHOUT CONTRAST (LEFT) (04/14/2021 6:41 PM EST) Anatomical Region Laterality Modality Shoulder Left Magnetic Resonan ce 04/14/2021 6:41 PM EST Impressions 04/14/2021 6:48 PM EST Partial-thickness supraspinatus tendon tear. Narrative 04/14/2021 6:48 PM EST COMPARISON: None. TECHNIQUE: Exam performed on a 1.5 Karis high-field MRI scanner. Axial T1 and proton density with fat suppression, oblique coronal proton density with fat suppression and T2 with fat suppression, oblique sagittal T1 and T2 with fat suppression sequences were obtained. MRI RIGHT SHOULDER FINDINGS: Acromion: No os acromiale. Type I acromion. No anterior or lateral downsloping. Rotator cuff muscle/tendon: Diffuse supraspinatus tendon thickening and intermediate signal. There is a small focus of fluid signal intensity in the humeral surface of the tendon. Findings consistent with severe tendinopathy and partial-thickness tear. No full- thickness tear. No rotator cuff muscle edema or atrophy. Labrum/biceps tendon: Biceps tendon is intact. Trace fluid in the bicipital groove. Small focus of intermediate signal in the anterior superior labrum consistent with degeneration. No tear. Bone marrow/joint: Joint spaces are preserved. No malalignment. No bone marrow edema. No destructive or suspicious bone lesions. No joint effusion. Trace fluid in the subacromial subdeltoid bursa. No fluid in the subcoracoid bursa. No suprascapular or spinoglenoid notch mass. Procedure Note Speedy Marquez MD - 04/14/2021 COMPARISON: None. TECHNIQUE: Exam performed on a 1.5 Karis high-field MRI scanner. Axial T1and proton density with fat suppression, oblique coronal proton densitywith fat suppression and T2 with fat suppression, oblique sagittal T1 andT2 with fat suppression sequences were obtained. MRI RIGHT SHOULDER FINDINGS: Acromion: No os acromiale. Type I acromion. No anterior or lateraldownsloping. Rotator cuff muscle/tendon: Diffuse supraspinatus tendon thickening andintermediate signal. There is a small focus of fluid signal intensity inthe humeral surface of the tendon. Findings consistent with severetendinopathy and partial-thickness tear. No full-thickness tear. Norotator cuff muscle edema or atrophy. Labrum/biceps tendon: Biceps tendon is intact. Trace fluid in thebicipital groove. Small focus of intermediate signal in the anteriorsuperior labrum consistent with degeneration. No tear. Bone marrow/joint: Joint spaces are preserved. No malalignment. No bonemarrow edema. No destructive or suspicious bone lesions. No jointeffusion. Trace fluid in the subacromial subdeltoid bursa. No fluid in thesubcoracoid bursa. No suprascapular or spinoglenoid notch mass. IMPRESSION: Partial-thickness supraspinatus tendon tear. Aiden Quezada DO [facility] MR EXTREMITY Final Result documented in this encounter Visit Diagnoses Diagnosis Tear of left rotator cuff, unspecified tear extent, unspecified whether traumatic- Primary Tear of left rotator cuff, unspecified tear extent, unspecified whether traumatic documented in this encounter Care Teams Nursing Education Consultant Relationship Specialty Start Date End Date Unknown, Unknown, MD PCP - General 03/31/21 04/13/21 Aiden Quezada DO PCP - General Internal Medicine 04/14/21 Aiden Quezada DO [address] [place] [address] Insurance Assigned Provider 05/10/21 09/19/22 documented as of this encounter Additional Source Comments The information contained in this document represents components of the legal health record. It is not the complete legal health record.[facility]
--- OUTSIDE RECORDS SUMMARY | 2025-01-05 11:41 | XMS_ITS | Patient Health Record ---
Author Organization [facility] Address [address] [place] [address] Care Team Providers Care Wool Carder Name Role Phone Chris Fang Unavailable [phone] Reason For Referral No Information Plan Of Treatment No Information
--- OUTSIDE RECORDS SUMMARY | 2025-01-05 11:41 | XMS_ITS | Encounter Summary ---
Author Organization [facility] Address [address] [place] [address] Phone Care Team Providers Care Wood Products Manufacturer Name Role Phone Unknown, Unknown Primary Care Provider Aiden Springer DO Primary Care Provider [phone] Aiden Quezada DO Unavailable Encounter Details Date Type Department Care Team (Late st Contact Info) Description 03/24/2021 Procedure [facility], [address] [address] Social History Tobacco Use Types Packs/Day Years Used Date Smoking Tobacco: Never Assessed Comments Unknown Sex and Gender Information Value Date Recorded Sex Assigned at Not on file Legal Sex Female 2:50 PM EST Gender Identity Not on file Sexual Orientation Not on file documented as of this encounter Plan of Treatment Not on file documented as of this encounter Visit Diagnoses Not on filedocumented in this encounter Care Teams Wood Products Manufacturer Relationship Specialty Start Date End Date Unknown, Unknown, PCP - General 03/31/21 04/13/21 Aiden Quezada DO PCP - General Internal Medicine 04/14/21 Aiden Quezada DO [address] [place] [id number] Insurance Assigned Provider 05/10/21 09/19/22 documented as of this encounter Additional Source Comments The information contained in this document represents components of the legal health record. It is not the complete legal health record.[facility]
--- OUTSIDE RECORDS SUMMARY | 2025-01-05 11:41 | XMS_ITS | Clinical Summary ---
Author Organization [facility] Address [address] [address] Phone Care Team Providers Care Cashier Supervisor Name Role Phone Aiden Quezada Primary Care Provider [phone] Allergies No known active allergies Medications busPIRone (BUSPAR) 5 MG tablet Take 5 mg by mouth 2 (two) times a day as needed. Active ibuprofen (ADVIL,MOTRIN) 800 MG tablet Take 800 mg by mouth 3 (three) times a day as needed. Active phenazopyridine (PYRIDIUM) 100 MG tablet Take 2 tablets (200 mg total) by mouth 3 (three) times a day as needed for pain (specific location in comments) (URINARY DISCOMFORT). 12 tablet Active Additional Information Patient not taking.Reported on 07/29/2022 Active Problems Problem Noted Date Diagnosed Date Candidiasis of vagina 07/22/2022 Acute bronchitis 07/20/2022 Nausea and vomiting 07/20/2022 Onychomycosis 05/07/2022 Tinea pedis of both feet 05/07/2022 Acute sinusitis 08/05/2021 Viral hepatitis C 12/10/2017 Immunizations Immunization Administration Dates Next Due Tdap 08/11/2015 Social History Tobacco Use Types Packs/Day Years Used Date Smoking Tobacco: Every Day Cigarettes Smokeless Tobacco: Never Tobacco Cessation:Ready to Q uit: Not Asked; Counseling Given: Not Answered Alcohol Use Standard Drinks/Week Comments Not Currently 0 (1 standard drink = 0.6 oz pur e alcohol) Education Answer Date Recorded Are you interested in more education? Not on paul e 08/29/2022 Are you concerned about learning? Not on file 08/29/2022 No 08/29/2022 No 08/29/2022 Digital Access Answer Date Recorded No 09/27/2022 No 09/27/2022 No 09/27/2022 Reliable internet access at home? Not on file 09/27/2022 Device with a working camera? Not on file Comments Unknown Sex and Gender Information Value Date Recorded Sex Assigned at Not on file Legal Sex Female 2:50 PM EST Gender Identity Not on file Sexual Orientation Not on file Last Filed Vital Signs Vital Sign Reading Time Taken Comments Blood Pressure 117/77 07/29/2022 4:48 PM EDT Pulse 75 07/29/2022 4:48 PM EDT Temperature 36.8 C (98.2 F) 07/29/2022 4:48 PM EDT Respiratory Rate 18 07/29/2022 4:48 PM EDT Oxygen Saturation 98% 07/29/2022 4:48 PM EDT Inhaled Oxygen Concentration - - Weight 61.2 kg (135 lb) 07/29/2022 4:48 PM EDT Height 149.9 cm (4' 11 ) 07/29/2022 4:48 PM EDT Body Mass Index 27.27 07/29/2022 4:48 PM EDT Plan of Treatment Health Maintenance Due Date Last Done Comments DEPRESSION SCREENING 1978 SMOKING Hx and SMOKELESS TOB ACCO SCREENING 09/26/1979 HIV ONE-TIME SCREENING (18-6 5 YEARS) 1984 HEPATITIS A VACCINES (1 of 2 - Risk 2-dose series) 1985 PNEUMOCOCCAL VACCINES (50+ y ears) (1 of 2 - PCV) 1985 PAP SMEAR 09/26/1987 SCREENING FOR DIABETES 2001 MAMMOGRAM 2006 COLOGUARD 09/26/2011 COLONOSCOPY 09/26/2011 COLORECTAL CANCER SCREENING 09/26/2011 FIT TEST 09/26/2011 FOBT 09/26/2011 SIGMOIDOSCOPY 09/26/2011 VIRTUAL COLONOSCOPY 09/26/2011 ZOSTER VACCINES (1 of 2) 2016 INFLUENZA VACCINE (#1) 2024 COVID-19 VACCINE (1 - 2023-2 5 season) 2025 LIPID PANEL 01/25/2025 01/26/2020 Adult Td,Tdap Booster 08/10/2025 08/11/2015 HIB VACCINES Aged Out No longer eligi ble based on patient's age to complete this topic MENINGOCOCCAL VACCINES (ACWY) Aged Out No longer eligible based on patient's age to complete this topic MENINGOCOCCAL VACCINES (B) Aged Out N o longer eligible based on patient's age to complete this topic Medical Devices Not on file Care Teams Cashier Supervisor Relationship Specialty Start Date End Date Aiden Quezada DO [email or web address] PCP - General Internal Medicine 04/14/21 Additional Source Comments The information contained in this document represents components of the legal health record. It is not the complete legal health record.[facility]
== END 2025-01-05 10:44 | disposition home or self-care (01) ==
LOC: HO.MAMMO 10:43
PROVIDERS: PCP Internal Medicine; Visit Provider Internal Medicine
DX: N64.89 Other specified disorders of breast (principal)
CPT/HCPCS: 76642; 77062; 77066

== ENCOUNTER → 2025-01-05 11:00 | Outpatient (BNV) | payer MEDICAID, SELFPAY | PROVIDERS: PCP Internal Medicine; Visit Provider Radiology Body Imaging | DX: R92.8 Other abnormal and inconclusive findings on diagnostic imaging of breast (principal) | CPT/HCPCS: 76642; 77062; 77066 ==

== ENCOUNTER 2025-02-02 09:27 | Outpatient (AMB) | payer MEDICAID, SELFPAY ==
--- NOTE | 2025-02-02 09:48 | A.OFFVIS_ITS ---
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 She has no insulation power unit tender concerns at all this year she is sexually active with 1 partner has no concerns about STDs at all her last Pap smear was negative in 2022. She is up-to-date on her mammograms. She says she did have to go back for another view and an ultrasound but she knew that everything was okay.. She is going to be going to her primary care provider to discuss her toenail issues. She heard about a medicine that could be used but she does not want anything that would affect her liver. 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 [facility] Medical History Hepatitis C virus infection History of anxiety Surgical History Hx of section Family History Mother History of breast cancer Maternal Grandmother Ovarian cancer Social History Alcohol intake: current Alcohol intake frequency: a few times a month Patient Tobacco Use Status: Current everyday Tobacco user Cigarettes Per Day: 4 Sexual orientation: Straight/Heterosexual Gender identity: Female Female Reproductive History Menstrual Age of Menarche: 10 Total pregnancies: 4 Full term: 3 Date of last pap smear: 10/08/22 (negative pap smear, negative hpv ) Date of Mammogram: 01/05/25 (bi rad 1) Physical Exam Const General: healthy appearing, comfortable, no acute distress, well developed and alert Nutritional Appearance: average body habitus Orientation/consciousness: patient oriented x3 Limitations: no limitations HEENT Head: Yes normocephalic Neck Neck: Yes normal visual inspection Chest Chest palpation & inspection: normal inspection of the chest Breast/axilla inspection: normal inspection of the breasts and normal inspection of the axillae Breast/axilla palpation: normal palpation of the breasts and normal palpation of the axillae Resp Effort & Inspection: normal respiratory effort GI Inspection: Yes normal to inspection, No Abdominal wall edema and No distended Palpation (GI): Soft to palpation and nontender General: Yes bladder normal to palpation External Female Exam: normal external appearance and normal appearance of the urethra Speculum Exam - Vagina: normal appearance of the vagina, normal palpation and normal vaginal discharge Speculum Exam - Cervix: normal appearance of the cervix, normal palpation and nontender Bimanual exam- vagina & uterus: normal bimanual exam, normal palpation, uterine size normal, bladder normal to palpation, consistency normal, normal palpation, uterine mobility normal, uterine shape normal, No Cervical tenderness present, non-tender and no cervical motion tenderness Bimanual Exam- Adnexa, other: normal adnexae, no masses, normal and No adnexal tenderness Neuro General: patient oriented x3 Assessment & Plan Assessment & Plan (1) Cervical cancer screening: Comment: No history of abnormals until HPV positive July of 2021. Pap done 10/08/2022= negative with negative HPV. Code(s): Z12.4 - Encounter for screening for malignant neoplasm of cervix Category: Medical (2) Breast cancer screening: Comment: HAs mammogram coming up 10/21/2022, had mammogram 10/24/2024,neg. Code(s): Z12.39 - Encounter for other screening for malignant neoplasm of breast Category: Medical (3) Postmenopausal: Code(s): Z78.0 - Asymptomatic menopausal state Category: Medical (4) Well woman exam with routine gynecological exam: Code(s): Z01.419 - Encounter for gynecological examination (general) (routine) without abnormal findings Category: Medical Plan -----Discussed in this visit the following: healthy balanced diet, regular and consistent exercise, getting recommended health screens, doing the best she can for her particular health concerns, kegel exercises, pap smear screening and followup recommendations, mammography screening and SBE, normal changes in cycles in her life stage--- . Pap not indicated at this visit patient has note concerns about STIs so no testing done.. She says she has not had any problems with the sex migraines anymore she sometimes get them but then not bad and she had a talk with her brother who says he gets them too. She has no health concerns at all RTC 1 year. Coding Level of Care Code Est Pt Prev Care 40-64y(79960) Diagnoses Cervical cancer screening Z12.4 Breast cancer screening Z12.39 Postmenopausal Z78.0 Well woman exam with routine gynecological exam Z01.419
--- OUTSIDE RECORDS SUMMARY | 2025-02-02 10:10 | XMS_ITS | Encounter Summary ---
Author Organization [facility] Address [address] [place] [id number] Phone Care Team Providers Care Football Scout Name Role Phone Unknown, Unknown Primary Care Provider Aiden Springer DO Primary Care Provider [phone] Aiden Quezada DO Unavailable Encounter Details Date Type Department Care Team (Late st Contact Info) Description 03/24/2021 Procedure Pass [facility], [address] [address] Social History Tobacco Use Types Packs/Day Years [...] on filedocumented in this encounter Care Teams Football Scout Relationship Specialty Start Date End Date Unknown, Unknown, PCP - General 03/31/21 04/13/21 Aiden Quezada DO PCP - General Internal Medicine 04/14/21 Aiden Quezada DO [address] [place] [id number] Insurance Assigned Provider 05/10/21 09/19/22 documented as of this encounter Additional Source Comments The information contained in this document represents components of the legal health record. It is not the complete legal health record.[facility] [place] [facility]
--- OUTSIDE RECORDS SUMMARY | 2025-02-02 10:10 | XMS_ITS | Encounter Summary ---
Author Organization [facility] Address [address] [place] [phone] Phone Care Team Providers Care News Agent Name Role Phone Unknown, Unknown Primary Care Provider Aiden Springer DO Primary Care Provider [phone] Aiden Quezada DO Unavailable Reason for Referral * MRI/CAT Scan - Closed Specialty Diagnoses / Procedures Referred By Js [email or web address] Referred To Contact Radiology Diagnoses Tear of left rotator cuff, unspecified tear extent, unspecified whether traumatic Procedures MRI Shoulder (Left) Aiden Quezada DO Phone: tel: fax: [email or web address] Referral ID Status Reason Start Date Expiration Date Visits Re quested Visits Authorized [id number] Closed 03/24/2021 03/21/2022 1 1 Encounter Details Date Type Department Care Team (Late st Contact Info) Description 03/24/2021 Transcribe Orders Virtual Department [address] [place] [address] Aiden Quezada DO [address] [facility] [place] [address] [email or web address] Tear of left rotator cuff, unspecified tear [...] Partial-thickness supraspinatus tendon tear. Aiden Quezada DO [facility] [place] EXTREMITY Final Result documented in this encounter Visit Diagnoses Diagnosis Tear of left rotator cuff, unspecified tear extent, unspecified whether traumatic- Primary Tear of left rotator cuff, unspecified tear extent, unspecified whether traumatic documented in this encounter Care Teams News Agent Relationship Specialty Start Date End Date Unknown, Unknown, MD PCP - General 03/31/21 04/13/21 Aiden Quezada DO PCP - General Internal Medicine 04/14/21 Aiden Quezada DO [address] [place] [address] Insurance Assigned Provider 05/10/21 09/19/22 documented as of this encounter Additional Source Comments The information contained in this document represents components of the legal health record. It is not the complete legal health record.[facility]
--- OUTSIDE RECORDS SUMMARY | 2025-02-02 10:10 | XMS_ITS | Patient Health Record ---
Author Organization [facility] Address [address] [place] [address] Care Team Providers Care Medical Asst Name Role Phone Chris Fang Unavailable [phone] Reason For Referral No Information Plan Of Treatment No Information
--- OUTSIDE RECORDS SUMMARY | 2025-02-02 10:10 | XMS_ITS | Clinical Summary ---
Author Organization [employer] Address [address] [facility] [address] [place] [address] Care Team Providers Care Teacher Vocational Training Name Role Phone Unavailable Primary Care Provider [...] COVID-19 Vaccine (1 - 2023-2 5 season) 2025 Influenza Vaccine (#1) 2025 DTaP/Tdap/Td Vaccines (2 - T d [...] Most Recently Relevant to Health Maintenance Insurance [facility] MEDICA[facility] STAND ADULT
--- OUTSIDE RECORDS SUMMARY | 2025-02-02 10:10 | XMS_ITS | Clinical Summary ---
Author Organization [facility] Address [address] [address] Phone Care Team Providers Care Shoe Sewing Machine Operator And Tender Name Role Phone Aiden Quezada Primary Care Provider [phone] Allergies No known active allergies Medications busPIRone [...] VACCINE (#1) 2024 COVID-19 VACCINE (1 - 2024-2 6 season) 2025 LIPID PANEL 01/25/2025 01/26/2020 Adult [...] Medical Devices Not on file Care Teams Shoe Sewing Machine Operator And Tender Relationship Specialty Start Date End Date Aiden Quezada DO [email or web address] PCP - General Internal Medicine 04/14/21 Additional Source Comments The information contained in this document represents components of the legal health record. It is not the complete legal health record.[facility]
== END 2025-02-02 11:00 | disposition home or self-care (01) ==
LOC: HO.HWS 09:27
PROVIDERS: PCP Internal Medicine; Visit Provider Advanced Practice Midwife
DX: Z01.419 Encounter for gynecological examination (general) (routine) without abnormal findings (principal); Z12.39 Encounter for other screening for malignant neoplasm of breast; Z78.0 Asymptomatic menopausal state
CPT/HCPCS: 99396; 99459

== ENCOUNTER → 2025-02-02 09:27 | Outpatient (BNVA) | payer MEDICAID, SELFPAY | PROVIDERS: PCP Internal Medicine; Visit Provider Advanced Practice Midwife | DX: Z01.419 Encounter for gynecological examination (general) (routine) without abnormal findings (principal); Z78.0 Asymptomatic menopausal state | CPT/HCPCS: 99396; 99459 ==